=== PATIENT | female | born 1980 | race Caucasian/White ===

== ENCOUNTER → 2017-01-16 11:26 | Outpatient (CLI) | payer MEDICARE ==
[2015-02-10 13:07] VITALS: BMI 29.1
[~2017-01-16 11:26] MED LIST: BAYER CHEWABLE81 MG PO; COREG12.5 MG PO; FERROUS SULFAT325 MG PO; FISH OIL 1,2001 CAP PO; HUMULIN N100 U/ML; HUMULIN R100 U/ML; HUMULIN R100 U/ML SC; LANTUS SOL100 UNIT/1 SC; LANTUS SOL100 UNIT/1 SQ; LIPITOR40 MG PO; LISINOPRIL2.5 MG OR; LOPID600 MG PO; OYSCO 500+D TAB1 TAB PO; PRENATAL AD TAB1 TAB PO; VIBRAMYCIN 100100 MG PO; VITAMIN C1000 MG PO; ZESTRIL10 MG PO; ZESTRIL20 MG PO
[2017-01-16 12:19] LABS: BASOPHILS 0.4 % (0-2); EOSINOPHILS 2.8 % (0-7); HEMATOCRIT 35.2 % (36.0-48.0); HEMOGLOBIN 11.9 g/dL (12-16); IMMATURE GRANULOCYTES 0.6 % (0-5); LYMPHOCYTES 20.7 % (15-50); MCH 30.1 pg (26.0-34.0); MCHC 33.8 g/dL (31.0-37.0); MCV 89.1 fL (80.0-100.0); MEAN PLATELET VOLUME 8.8 fL (7.4-10.4); MONOCYTES 3.8 % (2-11); NEUTROPHILS 71.7 % (40-80); PLATELET COUNT 413 10x3/uL (130-400); RBC 3.95 10x6/uL (4.00-5.40); RDW 12.8 % (11.5-14.5); WBC 13.8 10x3/uL (4.8-10.8)
[2017-01-16 12:41] LABS: HEMOGLOBIN A1C 10.7 % (4.8-6.0)
[2017-01-16 13:12] LABS: ANION GAP 17.1 mmol/L (8-16); CALCIUM 8.4 mg/dL (8.5-10.1); CARBON DIOXIDE 18.1 mmol/L (21.0-32.0); CREATININE - SERUM 2.2 mg/dL (0.6-1.3); POTASSIUM - SERUM 4.2 mmol/L (3.5-5.1)
== END | disposition home or self-care (01) ==
LOC: D.LAB 01-02 11:00 → D.RAD 01-02 11:00 → D.LAB 11:26
PROVIDERS: Family Medicine
DX: E10.8 Type 1 diabetes mellitus with unspecified complications (principal); D63.8 Anemia in other chronic diseases classified elsewhere; R07.9 Chest pain, unspecified

== ENCOUNTER → 2017-04-27 09:49 | Outpatient (CLI) | payer MEDICARE ==
[2015-02-10 13:07] VITALS: BMI 29.1
[2017-04-27 10:37] LABS: ANION GAP 13.8 mmol/L (8-16); CALCIUM 8.3 mg/dL (8.5-10.1); CARBON DIOXIDE 21.2 mmol/L (21.0-32.0); CREATININE - SERUM 2.4 mg/dL (0.6-1.3)
== END | disposition home or self-care (01) ==
LOC: D.LAB 04-23 10:45
PROVIDERS: Family Medicine
DX: E10.8 Type 1 diabetes mellitus with unspecified complications (principal); D73.5 Infarction of spleen

== ENCOUNTER → 2017-07-31 10:13 | Outpatient (CLI) | payer MEDICARE ==
[2015-02-10 13:07] VITALS: BMI 29.1
[2017-07-31 11:00] LABS: ANION GAP 14.8 mmol/L (8-16); CALCIUM 8.1 mg/dL (8.5-10.1); CARBON DIOXIDE 19.9 mmol/L (21.0-32.0); CREATININE - SERUM 3.2 mg/dL (0.6-1.3); POTASSIUM - SERUM 3.7 mmol/L (3.5-5.1)
[2017-07-31 11:38] LABS: HEMOGLOBIN A1C 9.2 % (4.8-6.0)
== END | disposition home or self-care (01) ==
LOC: D.LAB 10:13
PROVIDERS: Family Medicine
DX: E10.622 Type 1 diabetes mellitus with other skin ulcer (principal); D73.5 Infarction of spleen; N18.9 Chronic kidney disease, unspecified

== ENCOUNTER → 2018-10-21 08:45 | Outpatient (CLI) | payer MEDICARE ==
[2015-02-10 13:07] VITALS: BMI 29.1
[~2018-10-21 08:45] MED LIST changes: +CELEXA20 MG PO; +CYCLOBENZAPRINE10 MG PO; +LASIX80 MG PO; +NORVASC5 MG PO; +TUMS PO; +XANAX0.25 MG PO
== END | disposition home or self-care (01) ==
LOC: D.RAD 08:15
PROVIDERS: ATTEND Family Medicine
DX: J18.9 Pneumonia, unspecified organism (principal)

== ENCOUNTER 2018-10-22 15:03 | Inpatient (IN) | payer MEDICARE ==
[~2018-10-22] VITALS: Ht 193 cm; Wt 123.5 kg
[~2018-10-22 15:03] MED LIST changes: -CELEXA20 MG PO; -CYCLOBENZAPRINE10 MG PO; -LASIX80 MG PO; -NORVASC5 MG PO; -TUMS PO; -XANAX0.25 MG PO
[2018-10-22 15:41] LABS: BASOPHILS 0.2 % (0-2); EOSINOPHILS 2.4 % (0-7); HEMATOCRIT 25.3 % (36.0-48.0); HEMOGLOBIN 8.5 g/dL (12-16); IMMATURE GRANULOCYTES 0.4 % (0-5); MCH 30.1 pg (26.0-34.0); MCHC 33.6 g/dL (31.0-37.0); MCV 89.7 fL (80.0-100.0); MEAN PLATELET VOLUME 9.2 fL (7.4-10.4); MONOCYTES 6.1 % (2-11); NEUTROPHILS 82.9 % (40-80); RBC 2.82 10x6/uL (4.00-5.40); WBC 13.2 10x3/uL (4.8-10.8)
[2018-10-22 15:55] LABS: PLATELET COUNT 163 10x3/uL (130-400)
[2018-10-22 16:04] LABS: ALBUMIN 2.4 g/dL (3.4-5.0); BILIRUBIN - TOTAL 0.19 mg/dL (0.2-1.3); CARBON DIOXIDE 15.4 mmol/L (21.0-32.0); CREATININE - SERUM 9.3 mg/dL (0.6-1.3); POTASSIUM - SERUM 4.4 mmol/L (3.5-5.1); PROTEIN - SERUM 6.4 g/dL (6.4-8.2)
[2018-10-22 16:13] LABS: CALCIUM 5.9 mg/dL (8.5-10.1)
[2018-10-22 17:15] VITALS: BP 167/93
--- NOTE | 2018-10-22 17:32 | NUR ---
PT LAYING IN BED RESPIRATIONS ARE EVEN AND UNLABORED NO DISTRESS NOTED. FAMILY MEMBERS AT BEDSIDE. RESPRIATIOSN ARE EVEN AND UNLABORED WILL CONT TO MONITOR.
[2018-10-22 17:41] LABS: APPEARANCE CLEAR (CLEAR); BILIRUBIN NEGATIVE (NEGATIVE); COLOR YELLOW (YELLOW); GLUCOSE 50 mg/dL (NEGATIVE); KETONE NEGATIVE (NEGATIVE); NITRITE NEGATIVE (NEGATIVE); PROTEIN 1+ mg/dL (NEGATIVE); UROBILINOGEN NORMAL (NORMAL)
[2018-10-22 17:42] LABS: BACTERIA MANY /hpf (NONE SEEN); EPITHELIAL CELLS OCC /hpf (0-5); RED CELLS - URINE OCC /hpf (0-5); WHITE CELLS - URINE 0-5 /hpf (0-5)
[2018-10-22 17:44] LABS: CREATINE KINASE 904 UL (21-215); TROPONIN-I 0.053 ng/mL (0.000-0.060)
[2018-10-22 19:00] VITALS: BP 169/98
--- NOTE | 2018-10-22 19:50 | NUR ---
RECIEVED PT TO UNIT VIA WC BY HOSPITAL STAFF AND FAMILY ,BP 175/101 APRESOLINE 10MG GIVEN PO TOLERATED WELL ALL OTHER V/S WNL , BREATH SOUNDS EVEN ,LUNGS CLEAR LOWER LOBES DIMINISHED, 4+ EDEMA ALL OVER , LEFT BKA , RT PARTIAL FOOT AMPUTATION , NO C/O PAIN AT THIS TIME CL IN REACH WILL CONT TO MONIOR FAMILY AT BEDSIDE
--- NOTE | 2018-10-22 21:00 | NUR ---
SPOKE TO DR. SALVADOR REGARDING EXCESS FLUID, HE WENT IN TO SEE PT AND PUT IN ORDERS
[2018-10-22 21:13] VITALS: BP 175/101
[2018-10-23 01:54] VITALS: BP 152/95
--- NOTE | 2018-10-23 02:10 | NUR ---
PAGES BECAUSE PT C/O PAIN , STATED PT COULD NOT HAVE ANYTHING
--- NOTE | 2018-10-23 02:42 | NUR ---
PATIENT HAS SON AND AT BEDSIDE, PT HAS GENERALIZED EDEMA THROUGHOUT ALL EXTREMITIES. I CONCUR WITH THIS ASSESSMENT.
[2018-10-23 03:47] VITALS: BP 178/101; BMI 35.1
[2018-10-23 04:41] LABS: BASOPHILS 0 % (0-2); EOSINOPHILS 2.1 % (0-7); HEMATOCRIT 25.3 % (36.0-48.0); HEMOGLOBIN 8.3 g/dL (12-16); IMMATURE GRANULOCYTES 0.3 % (0-5); LYMPHOCYTES 7.8 % (15-50); MCH 29.4 pg (26.0-34.0); MCHC 32.8 g/dL (31.0-37.0); MCV 89.7 fL (80.0-100.0); MEAN PLATELET VOLUME 9.5 fL (7.4-10.4); MONOCYTES 5.9 % (2-11); NEUTROPHILS 83.9 % (40-80); PLATELET COUNT 170 10x3/uL (130-400); RBC 2.82 10x6/uL (4.00-5.40); RDW 14.1 % (11.5-14.5); WBC 12.2 10x3/uL (4.8-10.8)
--- NOTE | 2018-10-23 05:03 | NUR ---
PTS B/P 187/102, GAVE PT CLONIDINE PO TOLERATED WELL
[2018-10-23 05:13] VITALS: BP 187/102
[2018-10-23 05:14] LABS: % SATURATION 26 % (15-55); IRON 48 ug/dl (35-150); TOTAL IRON BIND CAPACITY 181 ug/dl (260-445); UNSAT IRON BIND CAPACITY 133 ug/dl (150-375)
[2018-10-23 05:24] LABS: ALBUMIN 2.4 g/dL (3.4-5.0); ANION GAP 24.7 mmol/L (8-16); BILIRUBIN - TOTAL 0.23 mg/dL (0.2-1.3); CARBON DIOXIDE 15.6 mmol/L (21.0-32.0); CREATININE - SERUM 9.1 mg/dL (0.6-1.3); MAGNESIUM - SERUM 1.6 mg/dL (1.8-2.4); PHOSPHOROUS 8.8 mg/dL (2.5-4.9); POTASSIUM - SERUM 4.3 mmol/L (3.5-5.1); PROTEIN - SERUM 6.4 g/dL (6.4-8.2)
[2018-10-23 05:32] LABS: CALCIUM 5.6 mg/dL (8.5-10.1)
--- NOTE | 2018-10-23 05:56 | NUR ---
CALLED [facility] WITH CRITICAL LAB CA 5.6, NO ORDERS GIVEN
[2018-10-23 08:03] LABS: COMPLEMENT C4 22.9 mg/dL (17.4-52.2)
[2018-10-23 08:18] VITALS: BP 183/97
[2018-10-23 10:01] LABS: ERYTHROCYTE SEDIMENTATION RATE 35 mm/hr (0-20)
[2018-10-23 11:13] VITALS: BP 182/103
[2018-10-23 15:04] VITALS: Ht 193 cm; Wt 123.5 kg
--- NOTE | 2018-10-23 19:50 | NUR ---
RESUMING PT CARE. PT IS GETTING DIALYSIS. WAITING ON REPORT FROM DIALYSIS ONCE TREATMENT IS COMPLETED.
--- NOTE | 2018-10-23 20:15 | NUR ---
PT IS BACK FROM DIALYSIS. REPORT WAS CALLED FROM DIALYSIS NURSE. 3 LITERS OF FLUID REMOVED. BP 195/106, HR-95, TEMP-97.8 AND R-16. NO ACUTE S/S OF DISTRESS AT THIS TIME. PT HAD A RT HEMOSPLIT PLACED TODAY. PT IS A LT BKA AND RT FOOT IS AMPUTATED. PT HAS A IV IN THE RT AC THAT IS SALINE LOCK. BED IN LOW POSITION WITH CALL LIGHT IN REACH. WILL CONTINUE TO MONITOR PT AND FOLLOW PLAN OF CARE.
--- NOTE | 2018-10-24 01:50 | NUR ---
PT LAYING IN BED RESTING COMFORTABLY WITH EYES CLOSED. FAMILY AT BED SIDE. NO S/S OF DISTRESS NOTED. BED IN LOW POSITION WITH CALL LIGHT IN REACH. WILL CONTINUE TO MONITOR PT AND FOLLOW PLAN OF CARE.
[2018-10-24 02:38] VITALS: BP 156/80
[2018-10-24 08:06] VITALS: BP 183/100
[2018-10-24 09:24] LABS: CREATININE - SERUM 6.9 mg/dL (0.6-1.3)
[2018-10-24 09:27] LABS: ANION GAP 17.2 mmol/L (8-16); CARBON DIOXIDE 22.2 mmol/L (21.0-32.0); POTASSIUM - SERUM 3.4 mmol/L (3.5-5.1)
[2018-10-24 09:31] LABS: CALCIUM 6.1 mg/dL (8.5-10.1)
[2018-10-24 10:22] LABS: ANA REFLEX - DIRECT Negative (Negative); FOLATE (FOLIC ACID) - SERUM 7.9 ng/mL (>3.0)
--- NOTE | 2018-10-24 12:07 | NUR ---
CALLED DIALYSIS TO BRING CALCIUM GLUCONATE TO BE DELIVERED THERE BECAUSE OF A CRITICALLY LOW CALCIUM AND WAS TOLD BY MIRACLE TO WAIT UNTIL SHE IS DONE AND RETURNED TO THE FLOOR.
[2018-10-24 13:18] LABS: HEPATITIS C ANTIBODY <0.1 S/CO RAT (0.0-0.9)
[2018-10-24 14:42] VITALS: BP 194/106
[2018-10-24 17:11] LABS: SPE - A/G RATIO 0.9 (0.7-1.7); SPE - ALBUMIN 2.9 g/dL (2.9-4.4); SPE - ALPHA-1 GLOBULIN 0.4 g/dL (0.0-0.4); SPE - ALPHA-2 GLOBULIN 0.9 g/dL (0.4-1.0); SPE - BETA GLOBULIN 0.7 g/dL (0.7-1.3); SPE - GAMMA GLOBULIN 1.1 g/dL (0.4-1.8); SPE - M-SPIKE Not Observed g/dL (Not Observed)
--- NOTE | 2018-10-24 19:50 | NUR ---
RESUMING PT CARE. PT IS ALERT LAYING IN BED. FAMILY AT BEDSIDE. NO C/O VOICED AT THIS TIME. NO S/S OF DISTRESS NOTED. BED IN LOW POSITION WITH CALL LIGHT. WILL CONTINUE TO MONITOR PT AND FOLLOW PLAN OF CARE.
[2018-10-24 20:00] VITALS: BP 177/101
[2018-10-24 23:31] LABS: APPEARANCE CLEAR (CLEAR); BILIRUBIN NEGATIVE (NEGATIVE); COLOR YELLOW (YELLOW); GLUCOSE 100 mg/dL (NEGATIVE); KETONE NEGATIVE (NEGATIVE); NITRITE NEGATIVE (NEGATIVE); PROTEIN 2+ mg/dL (NEGATIVE); RED CELLS - URINE 0-5 /hpf (0-5); UROBILINOGEN NORMAL (NORMAL); WHITE CELLS - URINE RARE /hpf (0-5)
[2018-10-24 23:38] LABS: CREATININE - URINE 23.2 mg/dL (30-125)
[2018-10-24 23:39] LABS: PRO/CRE RATIO URINE 27.9 mg/g; PROTEIN - URINE 646.3 mg/dL (0.0-11.9)
[2018-10-25 00:30] VITALS: BP 168/98
[2018-10-25 01:21] LABS: UDS - AMPHET NEGATIVE QUAL (NEGATIVE); UDS - BARB NEGATIVE QUAL (NEGATIVE); UDS - BENZO NEGATIVE QUAL (NEGATIVE); UDS - COCAINE NEGATIVE QUAL (NEGATIVE); UDS - OPIATE NEGATIVE QUAL (NEGATIVE); UDS - PCP NEGATIVE QUAL (NEGATIVE); UDS - THC NEGATIVE QUAL (NEGATIVE)
[2018-10-25 04:00] VITALS: BP 161/90
[2018-10-25 05:59] LABS: ANION GAP 18.1 mmol/L (8-16); CARBON DIOXIDE 23.3 mmol/L (21.0-32.0); CREATININE - SERUM 5.3 mg/dL (0.6-1.3); POTASSIUM - SERUM 3.4 mmol/L (3.5-5.1)
[2018-10-25 06:03] LABS: CALCIUM 6.5 mg/dL (8.5-10.1)
--- NOTE | 2018-10-25 07:41 | NUR ---
REPORT RECEIVED. WILL CONTINUE WITH POC. PT CURRENTLY SITTING ON EDGE OF BED. CALL LIGHT W/I REACH. PT IS AAO AND BEDFAST. PT IS TURN Q2HR. RR EVEN AND UNLABORED ON RA. R.FOR PIV IS SALINE LOCKED. FAMILY AT BEDSIDE. PT DENIES ANY NEEDS AT THIS TIME. NO S/S OF DISTRESS NOTED. WILL CTM.
[2018-10-25 09:46] VITALS: BP 156/111
[2018-10-25 10:20] LABS: ANTI-GLOMERULAR BASMENT MEMBRN 3 units (0-20)
[2018-10-25 10:47] LABS: BASOPHILS 0.2 % (0-2); EOSINOPHILS 3.2 % (0-7); HEMATOCRIT 23.2 % (36.0-48.0); IMMATURE GRANULOCYTES 0.2 % (0-5); LYMPHOCYTES 11.7 % (15-50); MCH 29.5 pg (26.0-34.0); MCHC 32.3 g/dL (31.0-37.0); MCV 91.3 fL (80.0-100.0); MONOCYTES 9.1 % (2-11); NEUTROPHILS 75.6 % (40-80); PLATELET COUNT 138 10x3/uL (130-400); RBC 2.54 10x6/uL (4.00-5.40); WBC 9.3 10x3/uL (4.8-10.8)
[2018-10-25 10:49] LABS: HEMOGLOBIN 7.5 g/dL (12-16)
--- NOTE | 2018-10-25 14:08 | MORECARE ---
CASE MANAGEMENT DISCHARGE SUMMARY PATIENT: LUCERO RICH UNIT: [id number] ADM DATE: 10/22/18 AGE: 38 : 82 SEX: F ROOM/BED: D.2103 AUTHOR: TRISTAN PERSAUD PHYSICIAN: REFERRING PHYSICIAN: ИРИНА SALVADOR MD DATE OF SERVICE: 10/25/18 Discharge Plan Patient Name: LUCERO RICH Facility: [facility]:[place] : 1980 Planned Disposition: Home Anticipated Discharge Date: Discharge Date: Expected LOS: Initial Reviewer: [email or web address] Initial Review Date: 10/25/2018 Generated: 10/25/18 3:08 pm DCPIA - Discharge Planning Initial Assessment Updated by [email or web address]: Naseem Soto on 10/25/18 2:07 pm * Is the patient Alert and Oriented? Yes * How many steps to enter\exit or inside your home? * PCP DR. CABRERA * Pharmacy [facility] * Preadmission Environment Home with Family * ADLs Partial Dependent * Partial ADLs (Assistance needed) Medication Management Transfers * Equipment Elevated [place] Seat Shower Chair Wheelchair * Other Equipment GAIT BELT NO MEDICAL EQUIPMENT PROVIDER PREFERENCE * List name and contact numbers for known caregivers / representatives who currently or will assist patient after discharge: JENNIFER RICH, SPOUSE, * Verbal permission to speak to the caregivers and representatives has been obtained from the patient. N/A * Community resources currently utilized None * Please name any agencies selected above. NONE * Additional services required to return to the preadmission environment? No * Can the patient safely return to the preadmission environment? Yes * Has this patient been hospitalized within the prior 30 days at any hospital? No Patient Name: LUCERO RICH Page [phone] at 1408 All edits/amendments must be made on the electronic document DICTATION DATE: 10/25/181406 HEADER OPERATOR: MAURIZIO 10/25/181406 RPT#: [id number] DC DATE: STATUS: ADM IN [facility] [address] [place] [address] END OF REPORT
--- NOTE | 2018-10-25 14:25 | MORECARE ---
CASE MANAGEMENT DISCHARGE SUMMARY PATIENT: LUCERO RICH UNIT: [id number] ADM DATE: 10/22/18 AGE: 38 : 82 SEX: F ROOM/BED: D.8663 AUTHOR: CORI,DOC PHYSICIAN: REFERRING PHYSICIAN: ИРИНА SALVADOR MD DATE OF SERVICE: 10/25/18 Discharge Plan Patient Name: LUECRO RICH Facility: [facility]:[place] : 1980 Planned Disposition: Home Anticipated Discharge Date: Discharge Date: Expected LOS: Initial Reviewer: [email or web address] Initial Review Date: 10/25/2018 Generated: 10/25/18 3:25 pm Comments DCP- Discharge Planning Updated by [email or web address]: Naseem Soto on 10/25/18 1:[address] Patient Name: LUCERO RICH Admission Status: ER Accout number: [id number] Admission Date: 10-22-2018 : 1980 Admission Diagnosis:SHORTNESS OF BREATH Attending: ИРИНА SALVADOR Current LOS: 3 Anticipated DC Date: Planned Disposition: Home Primary Insurance: MEDICARE A & B Discharge Planning Comments: CM RECEIVED ORDER FOR OUTPATIENT DIALYSIS CLINIC ARRANGEMENT. RN AYANA BUENROSTRO HAS ALREADY INFORMED [facility] COORDINATOR JAYSON ALANIS WHO IS WORKING ON CLINIC PLACEMENT. CM MET WITH PT IN ROOM TO DISCUSS DISCHARGE PLANNING AND NEEDS. PT REPORTS LIVING AT HOME DEPENDENTLY WITH SPOUSE WHO ASSISTS WITH TRANSFERS NEEDED AND MEDICATION MANAGEMENT. PT HAS ELEVATED TOILET SEAT, GAIT BELT, SHOWER CHAIR AND WHEELCHAIR WITH NO MEDICAL EQUIPMENT PROVIDER PREFERENCE. PT HAS NO OUTSIDE SERVICES ASSISTING IN THE HOME. CM DISCUSSED AVAILABILITY OF HOME HEALTH, REHAB SERVICES AND MEDICAL EQUIPMENT. PT DENIES DISCHARGE NEEDS, REPORTS HER SPOUSE WILL PICK HER UP FOR DISCHARGE HOME. PT HAS SPOKEN TO JAYSON OF [facility] AND KNOWS AN OUTPATIENT CLINIC IS BEING ARRANGED AND HAVE REQUESTED MWF SCHEDULE IF POSSIBLE. PT'S SPOUSE WORKS AT [facility] AND PT IS NOT ELIGIBLE FOR FREE MEDICAID TRANSPORTATION HER CHILDREN ARE. CM EXPLAINED THAT IF PT HAS "[place]" MEDICAID, SHE MAY NOT BE ELIGIBLE FOR FREE TRANSPORT, BUT MAY BE ELIGIBLE FOR REDUCED COSTS LEONARDO PAY TRANSPORT. PT WILL CHECK WITH MEDICAID REGARDING THIS POSSIBILITY OF TRANSPORTATION ASSISTANCE. CM DISCUSSED APPLYING FOR [employer] TRANSPORT[employer], PROVIDED APPLICATION. PT REPORTS HER SPOUSE MAY HAVE TO TAKE A BREAK FROM WORK TO TRANSPORT PT HOME AFTER DIALYSIS BUT THEY WILL EXPLORE OTHER AVAILABLE OPTIONS. CM WAITING ARRANGEMENT OF OUTPATIENT DIALYSIS CLINIC ARRANGEMENTS. Gift Basket Packer: Naseem Soto DCPIA - Discharge Planning Initial Assessment Updated by [email or web address]: Naseem Soto on 10/25/18 2:07 pm * Is the patient Alert and Oriented? Yes * How many steps to enter\\exit or inside your home? * PCP DR. CABRERA * [facility] * Preadmission Environment Home with Family * ADLs Partial Dependent * Partial ADLs (Assistance needed) Medication Management Transfers * Equipment Elevated [place] Seat Shower Chair Wheelchair * Other Equipment GAIT BELT NO MEDICAL EQUIPMENT PROVIDER PREFERENCE * List name and contact numbers for known caregivers / representatives who currently or will assist patient after discharge: JENNIFER RICH, SPOUSE, * Verbal permission to speak to the caregivers and representatives has been obtained from the patient. N/A * Community resources currently utilized None * Please name any agencies selected above. NONE * Additional services required to return to the preadmission environment? No * Can the patient safely return to the preadmission environment? Yes * Has this patient been hospitalized within the prior 30 days at any hospital? No Last DP export: 10/25/18 1:08 p Patient Name: LUCERO RICH Page [id number] at 1421 All edits/amendments must be made on the electronic document DICTATION DATE: 10/25/181423 HOME ECONOMIST: MAURIZIO 10/25/181423 RPT#: [id number] DC DATE: STATUS: ADM IN [facility] [address] [place] [address] END OF REPORT
--- NOTE | 2018-10-25 14:57 | CN ---
PATIENT NAME:LUCERO RIZVI MEDICAL RECORD: [id number] : 84 LOCATION:[facility] D.2109 ADMIT DATE: 10/22/18 ACCOUNT: [id number] CONSULTING PHYSICIAN: STEVEN LEMOS MD REFERRING PHYSICIAN: ИРИНА SALVADOR MD DATE OF CONSULTATION: 10/25/2018 CARDIOLOGY CONSULT ADMITTING DIAGNOSES: 1. Pulmonary hypertension. 2. Tricuspid regurgitation. HISTORY OF PRESENT ILLNESS: Ms. Rizvi presents with renal failure, fluid overload and is now set for dialysis. She had an echocardiogram revealing pulmonary systolic pressure of 65 with moderate tricuspid regurgitation. Her systolic blood pressures have been in the 180 range. PHYSICAL EXAMINATION: GENERAL APPEARANCE: Well-nourished, well-developed, appears stated age. Level of distress, comfortable. PSYCHIATRIC: Mental status, alert, normal affect. Orientation, oriented to time, place and person. EYES: Lids and conjunctiva, noninjected. No discharge, no pallor. ENT: Lips, teeth, gums, normal dentition. Oropharynx, no cyanosis, no pallor. NECK: Carotid arteries, bilateral normal upstroke, no bruits, no thrills. JUGULAR VEINS: No jugular venous pressure or distention. CERVICAL LYMPH NODES: Nontender, nonenlarged. THYROID: Not enlarged. Nontender. No nodules. LUNGS: Respiratory effort, unlabored. CHEST: Normal curvature. No thoracic deformity. No chest wall tenderness. Percussion, resonant. Auscultation, clear. No wheezes, no rales, no rhonchi. CARDIOVASCULAR: Precordial exam, nondisplaced. No heaves or pericardial thrills. Rate and rhythm, regular. Heart sounds, normal S1, normal S2. No S3, no gallop, no rub. Systolic murmur, not heard. Diastolic murmur, not heard. EXTREMITIES: No cyanosis, no edema. Peripheral pulses, full and equal in all extremities, except as noted. No bruits appreciated. ABDOMEN: Soft, nondistended. Normal aorta. No bruit. Nontender. No masses. Liver, nontender, no hepatomegaly. Spleen, nontender, no splenomegaly. MUSCULOSKELETAL: No joint tenderness. No joint swelling. No erythema. NEUROLOGICAL: Normal gait, normal strength, normal tone. SKIN: Warm and dry. OVERALL IMPRESSION: Tricuspid regurgitation with pulmonary hypertension. This is really an extension of her overall disease process. This will improve with dialysis and blood pressure control. At this time, she is on lisinopril 20 mg daily, carvedilol 12.5 mg daily. No other significant blood pressure medications. Her systolic blood pressure is still in the 190 range, heart rate is still in the 100 range. We will increase the Coreg. Discontinue lisinopril, put her on Procardia in place of lisinopril to lower the pulmonary hypertension as well as the systemic hypertension. TRANSINT:[id number] Voice Confirmation ID: [id number] DOCUMENT ID: [id number] CONSULT REPORT [id number] LUCERO RIZVI, STEVEN RODRIGUEZ at 1457 CC: [id number] DICTATION DATE: 10/25/18410 POWER GENERATION TURBINE ROOM OPERATOR: 10/25/18419 ADM IN [facility] [address] [place] [address]
[2018-10-25] MEDS ORDERED: CYCLOBENZAPRINE10 MG PO (15:36)
[2018-10-25] MEDS ORDERED: CELEXA20 MG PO (15:36)
[2018-10-25] MEDS ORDERED: XANAX0.25 MG PO (15:37)
[2018-10-25 16:08] VITALS: BP 148/85
[2018-10-25 16:13] LABS: ANCA - ANTIMYELOPEROXIDASE <9.0 U/mL (0.0-9.0); ANCA - ANTIPROTEINASE 3 <3.5 U/mL (0.0-3.5); ANCA - ATYPICAL <1:20 titer (Neg:<1:20); ANCA - CYTOPLASMIC <1:20 titer (Neg:<1:20); ANCA - PERINUCLEAR <1:20 titer (Neg:<1:20)
--- NOTE | 2018-10-25 16:58 | NUR ---
AGREE WITH LABOR ARBITRATOR HEARING OFFICE ASSESSMENT
--- NOTE | 2018-10-25 17:54 | NUR ---
Dialysis Coordinator: Met with patient bedside in dialysis. Obtained EVANGELISTA for [facility]. Pt prefers a MWF, unsure if this will be available at [facility]. Referral sent to [facility] for review/acceptance/schedule assignment. Will update Neph & CM/SW as soon as patient accepted/chair-time obtained. FOREIGN RICARDO.
--- NOTE | 2018-10-25 18:16 | NUR ---
PT CURRENTLY LYING SEMI FOWLERS. CALL LIGHT W/I REACH. FAMILY AT BEDSIDE. RR EVEN AND UNLABORED ON RA. R.AC IS SALINE LOCKED. PT DENIES ANY NEEDS AT THIS TIME. WILL PASS REPORT AND CONTINUE WITH POC.
[2018-10-25 20:00] VITALS: BP 146/86
--- NOTE | 2018-10-25 20:21 | NUR ---
RESUMING PT CARE. PT IS ALERT LAYING IN BED WITH NO C/O VOICED AT THIS TIME. FAMILY AT BEDSIDE. NO S/S OF DISTRESS NOTED. BED IN LOW POSITION WITH CALL LIGHT IN REACH. WILL CONTINUE TO MONITOR PT AND FOLLOW PLAN OF CARE.
[2018-10-26 00:30] VITALS: BP 158/91
--- NOTE | 2018-10-26 03:02 | NUR ---
Resting quietly in bed, awake, watching TV, denies any pain or discomfort at this time. Male visitor at bedside. Respirations easy ans regular, no signs of distress.
[2018-10-26 04:30] VITALS: BP 139/78
[2018-10-26 05:30] LABS: BASOPHILS 0.2 % (0-2); EOSINOPHILS 3.8 % (0-7); HEMATOCRIT 23.7 % (36.0-48.0); IMMATURE GRANULOCYTES 0.3 % (0-5); MCH 29.4 pg (26.0-34.0); MCHC 31.6 g/dL (31.0-37.0); MCV 92.9 fL (80.0-100.0); MEAN PLATELET VOLUME 10.3 fL (7.4-10.4); MONOCYTES 9.4 % (2-11); NEUTROPHILS 72.3 % (40-80); PLATELET COUNT 153 10x3/uL (130-400); RBC 2.55 10x6/uL (4.00-5.40); RDW 13.9 % (11.5-14.5); WBC 10.4 10x3/uL (4.8-10.8)
[2018-10-26 05:38] LABS: HEMOGLOBIN 7.5 g/dL (12-16)
[2018-10-26 05:47] LABS: CARBON DIOXIDE 27.9 mmol/L (21.0-32.0); CREATININE - SERUM 4.2 mg/dL (0.6-1.3)
[2018-10-26 05:52] LABS: ANION GAP 11.5 mmol/L (8-16); POTASSIUM - SERUM 5.4 mmol/L (3.5-5.1)
[2018-10-26 05:59] LABS: CALCIUM 6.4 mg/dL (8.5-10.1)
--- NOTE | 2018-10-26 08:11 | NUR ---
ROUNDING DONE WITH PATIENT SITTING ON SIDE OF BED. IN REPORT PATIENT IS BLIND, OLD LEFT AKA, RIGHT FOOT IS SEEN WITH PARTIAL AMUPTATION. ON HEART MONITOR SHOWING SR, HR 81. ROOM AIR. RIGHT CHEST HEMIPSLIT SEEN WITH DRESSING C/D/I. RIGHT AC PIV SEEN SALINE LOCK. ON EP, K+ IS 5.4. FOR DIALYSIS TODAY.
[2018-10-26 09:13] VITALS: BP 128/60
[2018-10-26 12:10] VITALS: BP 120/70
--- NOTE | 2018-10-26 13:45 | NUR ---
RESTING WITH EYES CLOSED, SON AT BEDSIDE. RESP ARE EVEN.
--- NOTE | 2018-10-26 13:53 | NUR ---
NO URINE AT THIS TIME FOR LAB COLLECTION. WILL CONTINUE TO MONITOR.
--- NOTE | 2018-10-26 14:12 | NUR ---
I TALKED TO SUJEY JOSHUA APN FOR CECY HAN FOR PATIENT COUGHING. NEW ORDERS GIVEN.
--- NOTE | 2018-10-26 15:35 | NUR ---
TO DIALYSIS VIA BED.
--- NOTE | 2018-10-26 16:24 | NUR ---
RESTING WITH EYES CLOSED, RESP ARE EVEN. APPEARS TO BE PAIN FREE AT THIS TIME.
--- NOTE | 2018-10-26 18:06 | NUR ---
PATIENT HAS NOT URINATED FOR SAMPLE TO BE OBTAINED. WILL PASS TO NEXT SHIFT.
--- NOTE | 2018-10-26 18:07 | NUR ---
STILL OFF FLOOR IN DIALYSIS,
--- NOTE | 2018-10-26 19:02 | NUR ---
RETURNS FROM DIALYSIS.
--- NOTE | 2018-10-26 19:26 | NUR ---
RECEIVED REPORT, ASSUMED CARE OF PATIENT. ALERT/AWAKE DENIES PAIN OR ANY NEEDS. BACK FROM DIALYSIS. DIALYSIS NURSE REPORTED REMOVING 2.5 L. VISITORS PRESENT IN ROOM. BED IS LOW WITH CALL LIGHT IN REACH.
[2018-10-26 20:00] VITALS: BP 134/75
--- NOTE | 2018-10-26 21:55 | NUR ---
REQUESTED PRN FLEXERIL AND TESSALON PERLE FOR COUGH. 4 UNITS OF HUMALOG ADMIN FOR BS 159. NO OTHER NEEDS VOICED.
[2018-10-26 23:30] VITALS: BP 134/77
[2018-10-27 04:30] VITALS: BP 134/75
--- NOTE | 2018-10-27 05:10 | NUR ---
ADMIN ULTRAM FOR C/O NECK/BACK PAIN LEVEL 8, DESCRIBED SHARP SHOOTING PAINS AND XANAX FOR C/O ANXIETY. NO OTHER NEEDS VOICED.
[2018-10-27 05:33] LABS: BASOPHILS 0.2 % (0-2); IMMATURE GRANULOCYTES 0.3 % (0-5); LYMPHOCYTES 10.5 % (15-50); MCH 29.6 pg (26.0-34.0); MCHC 31.9 g/dL (31.0-37.0); MCV 92.9 fL (80.0-100.0); MEAN PLATELET VOLUME 10.5 fL (7.4-10.4); MONOCYTES 8.3 % (2-11); NEUTROPHILS 77.7 % (40-80); PLATELET COUNT 181 10x3/uL (130-400); RBC 2.53 10x6/uL (4.00-5.40); RDW 13.8 % (11.5-14.5); WBC 12.3 10x3/uL (4.8-10.8)
[2018-10-27 05:46] LABS: HEMOGLOBIN 7.6 g/dL (12-16)
[2018-10-27 05:47] LABS: ALBUMIN 1.9 g/dL (3.4-5.0); CARBON DIOXIDE 31.9 mmol/L (21.0-32.0); CREATININE - SERUM 3.7 mg/dL (0.6-1.3); PHOSPHOROUS 2.8 mg/dL (2.5-4.9)
[2018-10-27 06:03] LABS: ANION GAP 7.1 mmol/L (8-16)
[2018-10-27 06:04] LABS: CALCIUM 6.1 mg/dL (8.5-10.1)
--- NOTE | 2018-10-27 07:11 | NUR ---
ROUNDING DONE WITH PATIENT RESTING IN BED, HOB AT 45 DEGREES. THERE ARE TWO OTHER MEMBERS SLEEPING IN RECLINERS IN ROOM. PATIENT IS ON HEART MONITOR SHOWING SR, HR 85. RIGHT AC PIV SALINE LOCK, ORANGE SWAB CAP IN USE. RIGHT CHEST HEMISPLIT, DRESSING WILL BE CHANGED TODAY (DID NOT GET DONE LAST NIGHT PAST DIALYSIS). ON EP, K+ IS 3.0, WILL COVER WITH ORAL SUPPLEMENTS. WILL MONITOR FOR NEEDS AND CPOC.
--- NOTE | 2018-10-27 08:20 | NUR ---
POTASSIUM 40 MEQ GIVEN FOR EP, RE-DRAW OF LAD ORDERED FOR 1230.
[2018-10-27 09:22] VITALS: BP 184/85
--- NOTE | 2018-10-27 09:25 | NUR ---
PATIENT IS ON BSC AT THIS TIME. SPOUSE IS IN THE ROOM.
--- NOTE | 2018-10-27 12:28 | NUR ---
[facility] PLACED IN BSC FOR SPECIMEN TO BE OBTAINED OF URINE. INSTRUCTED TO NOTIFY STAFF WHEN DONE.
--- NOTE | 2018-10-27 12:33 | NUR ---
POTASSIUM REDRAW WITH RESULTS OF 3.1. WILL COVER AGAIN WITH ORAL SUPPLEMENTS.
[2018-10-27 12:42] LABS: ANION GAP 10.1 mmol/L (8-16); CREATININE - SERUM 3.8 mg/dL (0.6-1.3); POTASSIUM - SERUM 3.1 mmol/L (3.5-5.1)
[2018-10-27 12:47] LABS: CALCIUM 5.9 mg/dL (8.5-10.1)
--- NOTE | 2018-10-27 13:29 | NUR ---
URINE SENT TO LAB ORDERED.
[2018-10-27 13:41] VITALS: BP 108/60
--- NOTE | 2018-10-27 13:48 | NUR ---
DIALYSIS AND DIET EDUCATION FROM [facility] PRINTED OFF FOR PATIENT AND . THEY HAD LOTS OF QUESTIONS R/T DIET.
--- NOTE | 2018-10-27 14:41 | NUR ---
PATIENT HAS HER BLOOD BAND OFF ON THE BED. IT WAS TAKEN OFF BY HER SHE AND HE BOTH STATES IT WAS "CUTTING OFF HER CIRCULATION". I CALLED LAB AND TALKED TO JENNA WHO STATES THAT SINCE I KNOW WHO THE PATIENT IS, IT CAN BE TAPED BACK ON. I TAPED IT BACK ON THE PATIENT.
--- NOTE | 2018-10-27 14:55 | NUR ---
BATH THINGS ARE GIVEN TO PATIENT AND SPOUSE FOR PATIENT TO WASH UP. HE ASKED IF SHE COULD TAKE A SHOWER, I EXPLAINED TO HIM THAT THE BATHROOM IS SMALL FOR THE WHEELCHAIR AND FOR HER TO TRANSFER TO THE SHOWER CHAIR WITH ONE LEG. HE SAID THAT WE DO IT ALL THE TIME. I SAID THAT I WOULD FEEL BETTER WITH HER JUST WASHING UP ON SIDE OF BED.
--- NOTE | 2018-10-27 15:37 | NUR ---
RIGHT CHEST HEMISPLIT DRESSING CHANGED USING STERILE TECHNIQUE. PATIENT IS BRUISED FROM UNDER DRESSING DOWN TO RIGHT BREAST. DATED. TOLERATED WELL. COMPLETE BATH GIVEN PER SPOUSE, COMPLETE LINEN CHANGE PER THIS NURSE.
[2018-10-27 17:32] VITALS: BP 100/64
--- NOTE | 2018-10-27 17:42 | NUR ---
ANOTHER 40 MEQ OF POTASSIUM GIVEN PER EP PROTOCOL.
--- NOTE | 2018-10-27 18:11 | NUR ---
WILL PASS TO NEXT SHIFT THAT WE NEED APPROX ANOTHER A0 CC OF URINE TO FINISH THE PROTEIN ELECTRO TEST THAT WAS ORDERED.
--- NOTE | 2018-10-27 19:37 | NUR ---
ALERT/AWAKE DENIES ANY NEEDS. IV IN R AC INTACT SL. RESP 20 EVEN UNLABORED. TELEMETRY SHOWS 68 SR. FAMILY MEMBERS PRESENT IN ROOM. NO QUESTIONS OR CONCERNS VOICED.
[2018-10-27 20:00] VITALS: BP 119/76
--- NOTE | 2018-10-27 22:20 | NUR ---
ADMIN TRAMADOL 100MG PO AND FLEXERIL PER REQUEST FOR C/O NECK/BACK PAIN; XANAX ADMIN PER REQUEST FOR C/L ANXIETY. NO OTHER NEEDS VOICED.
[2018-10-28] VITALS: BP 129/78
--- NOTE | 2018-10-28 00:45 | NUR ---
RESTING WITH EYES CLOSED. RR 18 EVEN UNLABORED. NO S/S OF DISCOMFORT. FAMILY MEMBERS PRESENT IN ROOM.
[2018-10-28 05:00] VITALS: BP 120/78
[2018-10-28 05:31] LABS: BASOPHILS 0.1 % (0-2); EOSINOPHILS 3.2 % (0-7); HEMATOCRIT 22.9 % (36.0-48.0); IMMATURE GRANULOCYTES 0.3 % (0-5); LYMPHOCYTES 10.9 % (15-50); MCH 29.5 pg (26.0-34.0); MCHC 31.4 g/dL (31.0-37.0); MCV 93.9 fL (80.0-100.0); MEAN PLATELET VOLUME 10.4 fL (7.4-10.4); MONOCYTES 10.2 % (2-11); NEUTROPHILS 75.3 % (40-80); PLATELET COUNT 174 10x3/uL (130-400); RBC 2.44 10x6/uL (4.00-5.40); RDW 14.1 % (11.5-14.5); WBC 11.6 10x3/uL (4.8-10.8)
--- NOTE | 2018-10-28 05:35 | NUR ---
AWAKE. DENIES ANY NEEDS OR DISCOMFORTS.
[2018-10-28 05:37] LABS: HEMOGLOBIN 7.2 g/dL (12-16)
[2018-10-28 05:48] LABS: ANION GAP 9.7 mmol/L (8-16); CREATININE - SERUM 4.3 mg/dL (0.6-1.3); PHOSPHOROUS 2.9 mg/dL (2.5-4.9); POTASSIUM - SERUM 3.7 mmol/L (3.5-5.1)
[2018-10-28 05:55] LABS: CALCIUM 5.9 mg/dL (8.5-10.1)
--- NOTE | 2018-10-28 07:40 | NUR ---
REPORT RECEIVED. WILL CONTINUE WITH POC. PT CURRENTLY LYING SEMI FOWLERS. CALL LIGHT W/I REACH. FAMILY AT BEDSIDE. PT IS AAO AND UP WITH ASSIST. RR EVEN AND UNLABORED ON RA. R.AC PIV IS SALINE LOCKED. PT DENIES ANY NEEDS AT THIS TIME. WILL CTM.
[2018-10-28 08:46] VITALS: BP 123/72
--- NOTE | 2018-10-28 09:31 | NUR ---
AM MEDICATIONS ADMINISTERED. PT LYING SEMI FOWLERS. CALL LIGHT W/I REACH. AAO. FAMILY AT BEDSIDE. REMOVED PIV DRESSING, CLEANING WITH CHLOROHEXIDINE AND PLACED NEW DRESSING. PIV FLUSHES AND PULLS BLOOD. WILL CTM.
--- NOTE | 2018-10-28 10:21 | NUR ---
PT TRANSFERED TO DIALYSIS. WILL CTM.
--- NOTE | 2018-10-28 10:48 | NUR ---
Nutrition follow-up: Pt in dialysis at this time Diet: Renal ADA PO intake 75-100% of meals Labs reviewed Wt: 272# +BM RDN will provide diet education Following.
[2018-10-28 16:11] VITALS: BP 101/65
--- NOTE | 2018-10-28 17:28 | NUR ---
Dialysis Coordinator: Patient has been accepted at [facility] on a TTS @ 7:15 arrival for 7:45 on-time. [facility] [address] [place], [place] [address] Phone Please contact me with any questions. Jenae Taylor, Dialysis Coordinator, [facility] - [phone].
--- NOTE | 2018-10-28 19:26 | NUR ---
ALERT/AWAKE ORIENTED X4. RR 20 EVEN U/L. TELEMETRY SHOWS 76 SR. IV IN R AC INTACT SL. DENIES ANY NEEDS OR DISCOMFORTS. PRESENT IN ROOM. INQUIRED IF SHE WAS BEING DISCHARGED TONIGHT. INFORMED THAT I DID NOT SEE ANY DISCHARGE ORDERS.
[2018-10-28 20:00] VITALS: BP 102/68
--- NOTE | 2018-10-28 21:20 | NUR ---
ADMIN ULTRAM PO AND FLEXERIL PO PER REQUEST FOR C/O NECK/BACK PAIN. REQUESTED ICE PACK FOR HER NECK AND DIET SODA.
[2018-10-29] VITALS: BP 132/81
--- NOTE | 2018-10-29 03:22 | NUR ---
NO CHANGES NOTED. RESTING WITH EYES CLOSED. RR 18 EVEN U/L. NO S/S OF DISCOMFORT. CL IN REACH. PRESENT IN ROOM.
[2018-10-29 04:30] VITALS: BP 122/73
[2018-10-29 05:18] LABS: BASOPHILS 0.1 % (0-2); EOSINOPHILS 2.9 % (0-7); IMMATURE GRANULOCYTES 0.3 % (0-5); LYMPHOCYTES 11.3 % (15-50); MCH 29.5 pg (26.0-34.0); MCV 92.1 fL (80.0-100.0); MEAN PLATELET VOLUME 10.5 fL (7.4-10.4); MONOCYTES 11.8 % (2-11); NEUTROPHILS 73.6 % (40-80); PLATELET COUNT 167 10x3/uL (130-400); WBC 11.7 10x3/uL (4.8-10.8)
[2018-10-29 05:22] LABS: HEMATOCRIT 27.8 % (36.0-48.0); HEMOGLOBIN 8.9 g/dL (12-16); RBC 3.02 10x6/uL (4.00-5.40)
[2018-10-29 05:45] LABS: ANION GAP 8.2 mmol/L (8-16); CARBON DIOXIDE 32.2 mmol/L (21.0-32.0); CREATININE - SERUM 3.8 mg/dL (0.6-1.3); PHOSPHOROUS 2.6 mg/dL (2.5-4.9); POTASSIUM - SERUM 3.4 mmol/L (3.5-5.1)
[2018-10-29 06:08] LABS: CALCIUM 6.2 mg/dL (8.5-10.1)
--- NOTE | 2018-10-29 07:30 | NUR ---
RECEIVED PT IN BED AAOX4 RESP UNLABORED DENIES ANY NEEDS OR DISCOMFORT AT THIS TIME
[2018-10-29 08:00] VITALS: BP 115/76
--- NOTE | 2018-10-29 10:48 | MORECARE ---
CASE MANAGEMENT DISCHARGE SUMMARY PATIENT: LUCERO RICH UNIT: [id number] ADM DATE: 10/22/18 AGE: 38 : 84 SEX: F ROOM/BED: D.9534 AUTHOR: TRISTAN PERSAUD PHYSICIAN: REFERRING PHYSICIAN: ИРИНА SALVADOR MD DATE OF SERVICE: 10/29/18 Discharge Plan Patient Name: LUCERO RICH Facility: [facility]:[place] : 1980 Planned Disposition: Home Anticipated Discharge Date: Discharge Date: Expected LOS: Initial Reviewer: [id number] Initial Review Date: 10/25/2018 Generated: 10/29/18 11:47 am Comments DCP- Discharge Planning Updated by [id number]: Naseem Soto on 10/29/18 9:[address] Patient Name: LUCERO RICH Encounter No: [id number] : 1980 Primary Insurance: MEDICARE A & B Anticipated DC Date: Planned Disposition: Home DCP follow-up note: CM REVIEWED CHART, PATIENT PATHWAYS COORDINATOR JAYSON ALANIS'S NOTE INDICATES: Patient has been accepted at [facility] on a TTS @ 7:15 arrival for 7:45 on-time. [facility] , [address] [place] [address], [place] [address]; [phone] Phone. CM MET WITH PT AND SPOUSE IN ROOM TO DISCUSS DISCHARGE NEEDS AND PLANNING. LUCERO RICH provided verbal consent to discuss current and ongoing needs with/in the presence of: SPOUSE, JENNIFER. CM DISCUSSED AVAILABILITY OF HOME HEALTH, REHAB SERVICES AND MEDICAL EQUIPMENT. PT DENIES DISCHARGE NEEDS. SPOUSE TO TRANSPORT HOME AT DISCHARGE. IMPORTANT MESSAGE FROM MEDICARE PROVIDED AND EXPLAINED. CM TO FOLLOW AND ASSIST NEEDED. Naseem Soto CASE CARMEN DCP- Discharge Planning Updated by [id number]: Naseem Soto on 10/25/18 1:[address] Patient Name: LUCERO RICH Admission Status: ER Accout number: [id number] Admission Date: 10-22-2018 : 1980 Admission Diagnosis:SHORTNESS OF BREATH Attending: ИРИНА SALVADOR Current LOS: 3 Anticipated DC Date: Planned Disposition: Home Primary Insurance: MEDICARE A & B Discharge Planning Comments: CM RECEIVED ORDER FOR OUTPATIENT DIALYSIS CLINIC ARRANGEMENT. RN AYANA BUENROSTRO HAS ALREADY INFORMED PATIENT PATHWAYS COORDINATOR JAYSON ALANIS WHO IS WORKING ON CLINIC PLACEMENT. CM MET WITH PT IN ROOM TO DISCUSS DISCHARGE PLANNING AND NEEDS. PT REPORTS LIVING AT HOME DEPENDENTLY WITH SPOUSE WHO ASSISTS WITH TRANSFERS NEEDED AND MEDICATION MANAGEMENT. PT HAS ELEVATED TOILET SEAT, GAIT BELT, SHOWER CHAIR AND WHEELCHAIR WITH NO MEDICAL EQUIPMENT PROVIDER PREFERENCE. PT HAS NO OUTSIDE SERVICES ASSISTING IN THE HOME. CM DISCUSSED AVAILABILITY OF HOME HEALTH, REHAB SERVICES AND MEDICAL EQUIPMENT. PT DENIES DISCHARGE NEEDS, REPORTS HER SPOUSE WILL PICK HER UP FOR DISCHARGE HOME. PT HAS SPOKEN TO JAYSON OF PATIENT PATHWAYS AND KNOWS AN OUTPATIENT CLINIC IS BEING ARRANGED AND HAVE REQUESTED MWF SCHEDULE IF POSSIBLE. PT'S SPOUSE WORKS AT [facility] AND PT IS NOT ELIGIBLE FOR FREE MEDICAID TRANSPORTATION HER CHILDREN ARE. CM EXPLAINED THAT IF PT HAS "QMB" MEDICAID, SHE MAY NOT BE ELIGIBLE FOR FREE TRANSPORT, BUT MAY BE ELIGIBLE FOR REDUCED COSTS LEONARDO PAY TRANSPORT. PT WILL CHECK WITH MEDICAID REGARDING THIS POSSIBILITY OF TRANSPORTATION ASSISTANCE. CM DISCUSSED APPLYING FOR [employer] TRANS[employer] DISABILITY TRANSPORTATION, PROVIDED APPLICATION. PT REPORTS HER SPOUSE MAY HAVE TO TAKE A BREAK FROM WORK TO TRANSPORT PT HOME AFTER DIALYSIS BUT THEY WILL EXPLORE OTHER AVAILABLE OPTIONS. CM WAITING ARRANGEMENT OF OUTPATIENT DIALYSIS CLINIC ARRANGEMENTS. Software Development Test Engineer: N[facility]em Soto [facility] - Discharge Planning Initial Assessment Updated by [id number]: Naseem Soto on 10/25/18 2:07 pm * Is the patient Alert and Oriented? Yes * How many steps to enter\\exit or inside your home? * PCP DR. CABRERA * Pharmacy [facility] * Preadmission Environment Home with Family * ADLs Partial Dependent * Partial ADLs (Assistance needed) Medication Management Transfers * Equipment Elevated [place] Seat Shower Chair Wheelchair * Other Equipment GAIT BELT NO MEDICAL EQUIPMENT PROVIDER PREFERENCE * List name and contact numbers for known caregivers / representatives who currently or will assist patient after discharge: JENNIFER RICH, SPOUSE, * Verbal permission to speak to the caregivers and representatives has been obtained from the patient. N/A * Community resources currently utilized None * Please name any agencies selected above. NONE * Additional services required to return to the preadmission environment? No * Can the patient safely return to the preadmission environment? Yes * Has this patient been hospitalized within the prior 30 days at any hospital? No Coverage Notice Reviewer: [id number] Sarath Soto Notice Issued Date-Time: 10/29/2018 10:25 Notice Type: IM Discharge Notice Notice Delivered To: Patient Relationship to Patient: Pit Hoist Operator Name: Delivery Method: HAND - Hand Delivered Katia Days: Prior Verbal Notification: Recipient Understood Notice: Yes Recipient Signature: Yes Med Rec Note Co-signed by Attending: Coverage Notice Comment: Last DP export: 10/25/18 1:25 p Patient Name: LUCERO RICH Page [phone] at 1048 All edits/amendments must be made on the electronic document DICTATION DATE: 10/29/18 1047 PIPELINE WELDER: MAURIZIO 10/29/18 1047 RPT#: [id number] DC DATE: STATUS: ADM IN [facility] [address] [place] [address] END OF REPORT
[2018-10-29] MEDS ORDERED: COREG12.5 MG PO (11:16)
[2018-10-29] MEDS ORDERED: NORVASC5 MG PO (11:16)
[2018-10-29] MEDS ORDERED: TUMS PO (11:17)
--- NOTE | 2018-10-29 11:37 | NUR ---
FSBS 148
--- NOTE | 2018-10-29 11:58 | MORECARE ---
CASE MANAGEMENT DISCHARGE SUMMARY PATIENT: LUCERO RICH UNIT: [id number] ADM DATE: 10/22/18 AGE: 38 : 84 SEX: F ROOM/BED: D.1932 AUTHOR: CORI,TRISTAN PHYSICIAN: REFERRING PHYSICIAN: ИРИНА SALVADOR MD DATE OF SERVICE: 10/29/18 Discharge Plan Patient Name: LUCERO RICH Facility: [facility]:[place] : 1980 Planned Disposition: Home Anticipated Discharge Date: 10/29/18 Discharge Date: Expected LOS: 7 Initial Reviewer: [id number] Initial Review Date: 10/25/2018 Generated: 10/29/18 12:57 pm Comments DCP- Discharge Planning Updated by [email or web address]: Naseem Soto on 10/29/18 9:[address] Patient Name: LUCERO RICH Encounter No: [id number] : 1980 Primary Insurance: MEDICARE A & B Anticipated DC Date: Planned Disposition: Home DCP follow-up note: CM REVIEWED CHART, PATIENT PATHWAYS COORDINATOR JAYSON ALANIS'S NOTE INDICATES: Patient has been accepted at [facility] on a TTS @ 7:15 arrival for 7:45 on-time. [facility] , [address] [place] [address], [place] [address]; [phone] Phone. CM MET WITH PT AND SPOUSE IN ROOM TO DISCUSS DISCHARGE NEEDS AND PLANNING. LUCERO RICH provided verbal consent to discuss current and ongoing needs with/in the presence of: SPOUSE, JENNIFER. CM DISCUSSED AVAILABILITY OF HOME HEALTH, REHAB SERVICES AND MEDICAL EQUIPMENT. PT DENIES DISCHARGE NEEDS. SPOUSE TO TRANSPORT HOME AT DISCHARGE. IMPORTANT MESSAGE FROM MEDICARE PROVIDED AND EXPLAINED. CM TO FOLLOW AND ASSIST NEEDED. TODD Castro DCP- Discharge Planning Updated by [email or web address]: Naseem Soto on 10/25/18 1:[address] Patient Name: LUCERO RICH Admission Status: ER Accout number: [id number] Admission Date: 10-22-2018 : 1980 Admission Diagnosis:SHORTNESS OF BREATH Attending: ИРИНА SALVADOR Current LOS: 3 Anticipated DC Date: Planned Disposition: Home Primary Insurance: MEDICARE A & B Discharge Planning Comments: CM RECEIVED ORDER FOR OUTPATIENT DIALYSIS CLINIC ARRANGEMENT. RN AYANA BUENROSTRO HAS ALREADY INFORMED PATIENT PATHWAYS COORDINATOR JAYSON ALANIS WHO IS WORKING ON CLINIC PLACEMENT. CM MET WITH PT IN ROOM TO DISCUSS DISCHARGE PLANNING AND NEEDS. PT REPORTS LIVING AT HOME DEPENDENTLY WITH SPOUSE WHO ASSISTS WITH TRANSFERS NEEDED AND MEDICATION MANAGEMENT. PT HAS ELEVATED TOILET SEAT, GAIT BELT, SHOWER CHAIR AND WHEELCHAIR WITH NO MEDICAL EQUIPMENT PROVIDER PREFERENCE. PT HAS NO OUTSIDE SERVICES ASSISTING IN THE HOME. CM DISCUSSED AVAILABILITY OF HOME HEALTH, REHAB SERVICES AND MEDICAL EQUIPMENT. PT DENIES DISCHARGE NEEDS, REPORTS HER SPOUSE WILL PICK HER UP FOR DISCHARGE HOME. PT HAS SPOKEN TO JAYSON OF PATIENT PATHWAYS AND KNOWS AN OUTPATIENT CLINIC IS BEING ARRANGED AND HAVE REQUESTED MWF SCHEDULE IF POSSIBLE. PT'S SPOUSE WORKS AT [facility] AND PT IS NOT ELIGIBLE FOR FREE MEDICAID TRANSPORTATION HER CHILDREN ARE. CM EXPLAINED THAT IF PT HAS "QMB" MEDICAID, SHE MAY NOT BE ELIGIBLE FOR FREE TRANSPORT, BUT MAY BE ELIGIBLE FOR REDUCED COSTS LEONARDO PAY TRANSPORT. PT WILL CHECK WITH MEDICAID REGARDING THIS POSSIBILITY OF TRANSPORTATION ASSISTANCE. CM DISCUSSED APPLYING FOR [employer] TRANSIT DISABILITY TRANSPORTATION, PROVIDED APPLICATION. PT REPORTS HER SPOUSE MAY HAVE TO TAKE A BREAK FROM WORK TO TRANSPORT PT HOME AFTER DIALYSIS BUT THEY WILL EXPLORE OTHER AVAILABLE OPTIONS. CM WAITING ARRANGEMENT OF OUTPATIENT DIALYSIS CLINIC ARRANGEMENTS. Club Waiter/Waitress: Naseem Soto DCPIA - Discharge Planning Initial Assessment Updated by [email or web address]: Naseem Soto on 10/25/18 2:07 pm * Is the patient Alert and Oriented? Yes * How many steps to enter\\exit or inside your home? * PCP DR. CABRERA * [facility] * Preadmission Environment Home with Family * ADLs Partial Dependent * Partial ADLs (Assistance needed) Medication Management Transfers * Equipment Elevated [place] Seat Shower Chair Wheelchair * Other Equipment GAIT BELT NO MEDICAL EQUIPMENT PROVIDER PREFERENCE * List name and contact numbers for known caregivers / representatives who currently or will assist patient after discharge: JENNIFER RICH, SPOUSE, * Verbal permission to speak to the caregivers and representatives has been obtained from the patient. N/A * Community resources currently utilized None * Please name any agencies selected above. NONE * Additional services required to return to the preadmission environment? No * Can the patient safely return to the preadmission environment? Yes * Has this patient been hospitalized within the prior 30 days at any hospital? No Coverage Notice Reviewer: [id number] - Naseem Soto Notice Issued Date-Time: 10/29/2018 10:25 Notice Type: IM Discharge Notice Notice Delivered To: Patient Relationship to Patient: Scruff Worker Name: Delivery Method: HAND - Hand Delivered Katia Days: Prior Verbal Notification: Recipient Understood Notice: Yes Recipient Signature: Yes Med Rec Note Co-signed by Attending: Coverage Notice Comment: Last DP export: 10/29/18 9:48 a Patient Name: LUCERO RICH Page 73820 at 1158 All edits/amendments must be made on the electronic document DICTATION DATE: 10/29/181156 BARISTA: MAURIZIO 10/29/181156 RPT#: [id number] DC DATE: STATUS: ADM IN [facility] [address] [place] [address] END OF REPORT
--- NOTE | 2018-10-29 12:08 | MORECARE ---
CASE MANAGEMENT DISCHARGE SUMMARY PATIENT: LUCERO RICH UNIT: [id number] ADM DATE: 10/22/18 AGE: 38 : 84 SEX: F ROOM/BED: D.6738 AUTHOR: CORI,TRISTAN PHYSICIAN: REFERRING PHYSICIAN: ИРИНА SALVADOR MD DATE OF SERVICE: 10/29/18 Discharge Plan Patient Name: LUCERO RICH Facility: [facility]:[place] : 1980 Planned Disposition: Home Anticipated Discharge Date: 10/29/18 Discharge Date: Expected LOS: 7 Initial Reviewer: [id number] Initial Review Date: 10/25/2018 Generated: 10/29/18 1:07 pm Comments DCP- Discharge Planning Updated by [email or web address]: Naseem Soto on 10/29/18 9:[address] Patient Name: LUCERO RICH Encounter No: [id number] : 1980 Primary Insurance: MEDICARE A & B Anticipated DC Date: Planned Disposition: Home DCP follow-up note: CM REVIEWED CHART, PATIENT PATHWAYS COORDINATOR JAYSON ALANIS'S NOTE INDICATES: Patient has been accepted at [facility] on a TTS @ 7:15 arrival for 7:45 on-time. [facility] , [address] [place] [address], [place] [address]; [phone] Phone. CM MET WITH PT AND SPOUSE IN ROOM TO DISCUSS DISCHARGE NEEDS AND PLANNING. LUCERO RICH provided verbal consent to discuss current and ongoing needs with/in the presence of: SPOUSE, JENNIFER. CM DISCUSSED AVAILABILITY OF HOME HEALTH, REHAB SERVICES AND MEDICAL EQUIPMENT. PT DENIES DISCHARGE NEEDS. SPOUSE TO TRANSPORT HOME AT DISCHARGE. IMPORTANT MESSAGE FROM MEDICARE PROVIDED AND EXPLAINED. CM TO FOLLOW AND ASSIST NEEDED. TODD Castro DCP- Discharge Planning Updated by [email or web address]: Naseem Soto on 10/25/18 1:[address] Patient Name: LUCERO RICH Admission Status: ER Accout number: [id number] Admission Date: 10-22-2018 : 1980 Admission Diagnosis:SHORTNESS OF BREATH Attending: ИРИНА SALVADOR Current LOS: 3 Anticipated DC Date: Planned Disposition: Home Primary Insurance: MEDICARE A & B Discharge Planning Comments: CM RECEIVED ORDER FOR OUTPATIENT DIALYSIS CLINIC ARRANGEMENT. RN AYANA BUENROSTRO HAS ALREADY INFORMED PATIENT PATHWAYS COORDINATOR JAYSON ALANIS WHO IS WORKING ON CLINIC PLACEMENT. CM MET WITH PT IN ROOM TO DISCUSS DISCHARGE PLANNING AND NEEDS. PT REPORTS LIVING AT HOME DEPENDENTLY WITH SPOUSE WHO ASSISTS WITH TRANSFERS NEEDED AND MEDICATION MANAGEMENT. PT HAS ELEVATED TOILET SEAT, GAIT BELT, SHOWER CHAIR AND WHEELCHAIR WITH NO MEDICAL EQUIPMENT PROVIDER PREFERENCE. PT HAS NO OUTSIDE SERVICES ASSISTING IN THE HOME. CM DISCUSSED AVAILABILITY OF HOME HEALTH, REHAB SERVICES AND MEDICAL EQUIPMENT. PT DENIES DISCHARGE NEEDS, REPORTS HER SPOUSE WILL PICK HER UP FOR DISCHARGE HOME. PT HAS SPOKEN TO JAYSON OF PATIENT PATHWAYS AND KNOWS AN OUTPATIENT CLINIC IS BEING ARRANGED AND HAVE REQUESTED MWF SCHEDULE IF POSSIBLE. PT'S SPOUSE WORKS AT [facility] AND PT IS NOT ELIGIBLE FOR FREE MEDICAID TRANSPORTATION HER CHILDREN ARE. CM EXPLAINED THAT IF PT HAS "QMB" MEDICAID, SHE MAY NOT BE ELIGIBLE FOR FREE TRANSPORT, BUT MAY BE ELIGIBLE FOR REDUCED COSTS LEONARDO PAY TRANSPORT. PT WILL CHECK WITH MEDICAID REGARDING THIS POSSIBILITY OF TRANSPORTATION ASSISTANCE. CM DISCUSSED APPLYING FOR [employer] TRANSIT DISABILITY TRANSPORTATION, PROVIDED APPLICATION. PT REPORTS HER SPOUSE MAY HAVE TO TAKE A BREAK FROM WORK TO TRANSPORT PT HOME AFTER DIALYSIS BUT THEY WILL EXPLORE OTHER AVAILABLE OPTIONS. CM WAITING ARRANGEMENT OF OUTPATIENT DIALYSIS CLINIC ARRANGEMENTS. Freight Caller: Naseem Soto DCPIA - Discharge Planning Initial Assessment Updated by [email or web address]: Naseem Soto on 10/25/18 2:07 pm * Is the patient Alert and Oriented? Yes * How many steps to enter\\exit or inside your home? * PCP DR. CABRERA * [facility] * Preadmission Environment Home with Family * ADLs Partial Dependent * Partial ADLs (Assistance needed) Medication Management Transfers * Equipment Elevated [place] Seat Shower Chair Wheelchair * Other Equipment GAIT BELT NO MEDICAL EQUIPMENT PROVIDER PREFERENCE * List name and contact numbers for known caregivers / representatives who currently or will assist patient after discharge: JENNIFER RICH, SPOUSE, * Verbal permission to speak to the caregivers and representatives has been obtained from the patient. N/A * Community resources currently utilized None * Please name any agencies selected above. NONE * Additional services required to return to the preadmission environment? No * Can the patient safely return to the preadmission environment? Yes * Has this patient been hospitalized within the prior 30 days at any hospital? No Coverage Notice Reviewer: [id number] - Naseem Soto Notice Issued Date-Time: 10/29/2018 10:25 Notice Type: IM Discharge Notice Notice Delivered To: Patient Relationship to Patient: House Fellow Name: Delivery Method: HAND - Hand Delivered Katia Days: Prior Verbal Notification: Recipient Understood Notice: Yes Recipient Signature: Yes Med Rec Note Co-signed by Attending: Coverage Notice Comment: Last DP export: 10/29/18 9:48 a Patient Name: LUCERO RICH Page 72993 at 1208 All edits/amendments must be made on the electronic document DICTATION DATE: 10/29/181206 SUPERINTENDENT GAS DISTRIBUTION: MAURIZIO 10/29/181206 RPT#: [id number] DC DATE: STATUS: ADM IN [facility] [address] [place] [address] END OF REPORT
--- NOTE | 2018-10-29 13:33 | NUR ---
PT TO DIALYSIS VIA BED AT THIS TIME
[2018-10-29] MEDS ORDERED: LASIX80 MG PO (15:38)
--- NOTE | 2018-10-29 17:10 | NUR ---
FSBS 122
--- NOTE | 2018-10-29 17:23 | MORECARE ---
CASE MANAGEMENT DISCHARGE SUMMARY PATIENT: LUCERO RICH UNIT: [id number] ADM DATE: 10/22/18 AGE: 38 : 84 SEX: F ROOM/BED: D.3183 AUTHOR: CORI,TRISTAN PHYSICIAN: REFERRING PHYSICIAN: ИРИНА SALVADOR MD DATE OF SERVICE: 10/29/18 Discharge Plan Patient Name: LUCERO RICH Facility: [facility]:[place] : 1980 Planned Disposition: Home Anticipated Discharge Date: 10/29/18 Discharge Date: Expected LOS: 7 Initial Reviewer: [id number] Initial Review Date: 10/25/2018 Generated: 10/29/18 6:23 pm Comments DCP- Discharge Planning Updated by [email or web address]: Naseem Rice on 10/29/18 4:[address] Patient Name: LUCERO RICH Encounter No: [id number] : 1980 Primary Insurance: MEDICARE A & B Anticipated DC Date: Planned Disposition: Home DCP follow-up note: CM REVIEWED CHART, PATIENT PATHWAYS COORDINATOR JAYSON ALANIS'S NOTE INDICATES: Patient has been accepted at [facility] on a TTS @ 7:15 arrival for 7:45 on-time. [facility] , [address] [place] [address], [place] [address]; [phone] Phone. CM MET WITH PT AND SPOUSE IN ROOM TO DISCUSS DISCHARGE NEEDS AND PLANNING. LUCERO RICH provided verbal consent to discuss current and ongoing needs with/in the presence of: SPOUSE, JENNIFER. CM DISCUSSED AVAILABILITY OF HOME HEALTH, REHAB SERVICES AND MEDICAL EQUIPMENT. PT DENIES DISCHARGE NEEDS. SPOUSE TO TRANSPORT HOME AT DISCHARGE. IMPORTANT MESSAGE FROM MEDICARE PROVIDED AND EXPLAINED. CM TO FOLLOW AND ASSIST NEEDED. Naseem Rice, CASE MANAGEMENT Appended by Naseem Rice on 10/29/2018 17:17 CDT: CM SPOKE TO JAYSON ALANIS, PATIENT PATHWAYS COORDINATOR FOR [facility] WHO PROVIDED WELCOME LETTER FOR PT'S OUTPATIENT DIALYSIS UNIT. CM PROVIDED WELCOME LETTER TO PT'S SPOUSE IN ROOM, PT IN DIALYSIS AT THIS TIME. PT'S SPOUSE REPORTS UNDERSTANDING OF LETTER AND FIRST APPOINTMENT 10-31-18, 0700 AT [facility] WITH NORMAL SCHEDULE OF TTS, 0715 AM. NO FURHTER NEEDS IDENTIFIED. NASEEM RICE, CASE MANAGEMENT DCP- Discharge Planning Updated by [id number]: Naseem Rice on 10/25/18 1:[address] Patient Name: LUCERO RICH Admission Status: ER Accout number: [id number] Admission Date: 10-22-2018 : 1980 Admission Diagnosis:SHORTNESS OF BREATH Attending: ИРИНА SALVADOR Current LOS: 3 Anticipated DC Date: Planned Disposition: Home Primary Insurance: MEDICARE A & B Discharge Planning Comments: CM RECEIVED ORDER FOR OUTPATIENT DIALYSIS CLINIC ARRANGEMENT. RN AYANA BUENROSTRO HAS ALREADY INFORMED PATIENT PATHWAYS COORDINATOR JAYSON ALANIS WHO IS WORKING ON CLINIC PLACEMENT. CM MET WITH PT IN ROOM TO DISCUSS DISCHARGE PLANNING AND NEEDS. PT REPORTS LIVING AT HOME DEPENDENTLY WITH SPOUSE WHO ASSISTS WITH TRANSFERS NEEDED AND MEDICATION MANAGEMENT. PT HAS ELEVATED TOILET SEAT, GAIT BELT, SHOWER CHAIR AND WHEELCHAIR WITH NO MEDICAL EQUIPMENT PROVIDER PREFERENCE. PT HAS NO OUTSIDE SERVICES ASSISTING IN THE HOME. CM DISCUSSED AVAILABILITY OF HOME HEALTH, REHAB SERVICES AND MEDICAL EQUIPMENT. PT DENIES DISCHARGE NEEDS, REPORTS HER SPOUSE WILL PICK HER UP FOR DISCHARGE HOME. PT HAS SPOKEN TO JAYSON OF PATIENT PATHWAYS AND KNOWS AN OUTPATIENT CLINIC IS BEING ARRANGED AND HAVE REQUESTED MWF SCHEDULE IF POSSIBLE. PT'S SPOUSE WORKS AT [facility] AND PT IS NOT ELIGIBLE FOR FREE MEDICAID TRANSPORTATION HER CHILDREN ARE. CM EXPLAINED THAT IF PT HAS "QMB" MEDICAID, SHE MAY NOT BE ELIGIBLE FOR FREE TRANSPORT, BUT MAY BE ELIGIBLE FOR REDUCED COSTS LEONARDO PAY TRANSPORT. PT WILL CHECK WITH MEDICAID REGARDING THIS POSSIBILITY OF TRANSPORTATION ASSISTANCE. CM DISCUSSED APPLYING FOR [employer] TR[facility] DISABILITY TRANSPORTATION, PROVIDED APPLICATION. PT REPORTS HER SPOUSE MAY HAVE TO TAKE A BREAK FROM WORK TO TRANSPORT PT HOME AFTER DIALYSIS BUT THEY WILL EXPLORE OTHER AVAILABLE OPTIONS. CM WAITING ARRANGEMENT OF OUTPATIENT DIALYSIS CLINIC ARRANGEMENTS. Triage Register Nurse: Naseem Rice DCPIA - Discharge Planning Initial Assessment Updated by [email or web address]: Naseem Rice on 10/25/18 2:07 pm * Is the patient Alert and Oriented? Yes * How many steps to enter\\exit or inside your home? * PCP DR. CABRERA * [facility]acy [facility] * Preadmission Environment Home with Family * ADLs Partial Dependent * Partial ADLs (Assistance needed) Medication Management Transfers * Equipment Elevated Tol[place] Seat Shower Chair Wheelchair * Other Equipment GAIT BELT NO MEDICAL EQUIPMENT PROVIDER PREFERENCE * List name and contact numbers for known caregivers / representatives who currently or will assist patient after discharge: JENNIFER RICH, SPOUSE, * Verbal permission to speak to the caregivers and representatives has been obtained from the patient. N/A * Community resources currently utilized None * Please name any agencies selected above. NONE * Additional services required to return to the preadmission environment? No * Can the patient safely return to the preadmission environment? Yes * Has this patient been hospitalized within the prior 30 days at any hospital? No Coverage Notice Reviewer: [id number] Sarath Rice Notice Issued Date-Time: 10/29/2018 10:25 Notice Type: IM Discharge Notice Notice Delivered To: Patient Relationship to Patient: Channel Layer Name: Delivery Method: HAND - Hand Delivered Katia Days: Prior Verbal Notification: Recipient Understood Notice: Yes Recipient Signature: Yes Med Rec Note Co-signed by Attending: Coverage Notice Comment: Last DP export: 10/29/18 11:07 a Patient Name: LUCERO RICH Page 77482 at 1723 All edits/amendments must be made on the electronic document DICTATION DATE: 10/29/181722 HEALTH WORKERS: MAURIZIO 10/29/181722 RPT#: [id number] DC DATE: STATUS: ADM IN [facility] [address] [place] [address] END OF REPORT
[2018-10-29 18:19] VITALS: BP 120/68
--- NOTE | 2018-10-29 19:08 | NUR ---
INTRODUCED SELF TO PATIENT, PATIENT HAS AND CHILD AT BEDSIDE. PATIENT STATED WANTED A SHOWER TONIGHT OR EARLY IN THE MORNING. LET TECH KNOW. PATIENT BED IN LOWEST POSITION, CALL LIGHT IN REACH. NO S/SX OF DISTRESS OR DISCOMFORT AT THIS TIME.
[2018-10-29 20:00] VITALS: BP 105/48; BP 111/69
[2018-10-30] VITALS: BP 128/77
[2018-10-30 04:00] VITALS: BP 125/72
[2018-10-30 05:57] LABS: BASOPHILS 0.1 % (0-2); EOSINOPHILS 2.7 % (0-7); HEMATOCRIT 27.2 % (36.0-48.0); HEMOGLOBIN 8.5 g/dL (12-16); IMMATURE GRANULOCYTES 0.3 % (0-5); LYMPHOCYTES 14.6 % (15-50); MCH 29.3 pg (26.0-34.0); MCHC 31.3 g/dL (31.0-37.0); MCV 93.8 fL (80.0-100.0); MEAN PLATELET VOLUME 9.5 fL (7.4-10.4); MONOCYTES 11.5 % (2-11); NEUTROPHILS 70.8 % (40-80); PLATELET COUNT 147 10x3/uL (130-400); RDW 14.9 % (11.5-14.5); WBC 10.2 10x3/uL (4.8-10.8)
[2018-10-30 06:22] LABS: ANION GAP 7.9 mmol/L (8-16); CARBON DIOXIDE 33.7 mmol/L (21.0-32.0); CREATININE - SERUM 3.5 mg/dL (0.6-1.3); POTASSIUM - SERUM 3.6 mmol/L (3.5-5.1)
[2018-10-30 06:24] LABS: CALCIUM 6.1 mg/dL (8.5-10.1)
--- NOTE | 2018-10-30 07:45 | NUR ---
A/A/OX4. DENIES ANY PAIN AT PRESENT TIME AND VOICES NO REQUESTS. ASSESSMENT COMPLETED WITH NO CHANGES NOTED. BED IN LOW POSTITION. LOCKED, SIDERAILS UP X 2 AND CALL LIGHT IN REACH. FAMILY MEMBER AT BEDSIDE. WILL CONTINUE POC.
--- NOTE | 2018-10-30 07:54 | MORECARE ---
CASE MANAGEMENT DISCHARGE SUMMARY PATIENT: LUCERO RICH UNIT: [id number] ADM DATE: 10/22/18 AGE: 38 : [birth year] SEX: F ROOM/BED: D.1792 AUTHOR: CORI,TRISTAN PHYSICIAN: REFERRING PHYSICIAN: ИРИНА SALVADOR MD DATE OF SERVICE: 10/30/18 Discharge Plan Patient Name: LUCERO RICH Facility: [facility]:[place] : 1980 Planned Disposition: Home Anticipated Discharge Date: 10/30/18 Discharge Date: Expected LOS: 8 Initial Reviewer: [id number] Initial Review Date: 10/25/2018 Generated: 10/30/18 8:53 am Comments DCP- Discharge Planning Updated by [email or web address]: Naseem Rice on 10/29/18 4:[address] Patient Name: LUCERO RICH Encounter No: [id number] : 1980 Primary Insurance: MEDICARE A & B Anticipated DC Date: Planned Disposition: Home DCP follow-up note: CM REVIEWED CHART, PATIENT PATHWAYS COORDINATOR JAYSON ALANIS'S NOTE INDICATES: Patient has been accepted at [facility] on a TTS @ 7:15 arrival for 7:45 on-time. [facility] , [address] [place] [address], [place] [address]; [phone] Phone. CM MET WITH PT AND SPOUSE IN ROOM TO DISCUSS DISCHARGE NEEDS AND PLANNING. LUCERO RICH provided verbal consent to discuss current and ongoing needs with/in the presence of: SPOUSE, JENNIFER. CM DISCUSSED AVAILABILITY OF HOME HEALTH, REHAB SERVICES AND MEDICAL EQUIPMENT. PT DENIES DISCHARGE NEEDS. SPOUSE TO TRANSPORT HOME AT DISCHARGE. IMPORTANT MESSAGE FROM MEDICARE PROVIDED AND EXPLAINED. CM TO FOLLOW AND ASSIST NEEDED. Naseem Rice, CASE MANAGEMENT Appended by Naseem Rice on 10/29/2018 17:17 CDT: CM SPOKE TO JAYSON ALANIS, PATIENT PATHWAYS COORDINATOR FOR [facility] WHO PROVIDED WELCOME LETTER FOR PT'S OUTPATIENT DIALYSIS UNIT. CM PROVIDED WELCOME LETTER TO PT'S SPOUSE IN ROOM, PT IN DIALYSIS AT THIS TIME. PT'S SPOUSE REPORTS UNDERSTANDING OF LETTER AND FIRST APPOINTMENT 10-31-18, 0700 AT [facility] WITH NORMAL SCHEDULE OF TTS, 0715 AM. NO FURHTER NEEDS IDENTIFIED. NASEEM RICE, CASE MANAGEMENT DCP- Discharge Planning Updated by [id number]: Naseem Rice on 10/25/18 1:[address] Patient Name: LUCERO RICH Admission Status: ER Accout number: [id number] Admission Date: 10-22-2018 : 1980 Admission Diagnosis:SHORTNESS OF BREATH Attending: ИРИНА SALVADOR Current LOS: 3 Anticipated DC Date: Planned Disposition: Home Primary Insurance: MEDICARE A & B Discharge Planning Comments: CM RECEIVED ORDER FOR OUTPATIENT DIALYSIS CLINIC ARRANGEMENT. RN AYANA BUENROSTRO HAS ALREADY INFORMED PATIENT PATHWAYS COORDINATOR JAYSON ALANIS WHO IS WORKING ON CLINIC PLACEMENT. CM MET WITH PT IN ROOM TO DISCUSS DISCHARGE PLANNING AND NEEDS. PT REPORTS LIVING AT HOME DEPENDENTLY WITH SPOUSE WHO ASSISTS WITH TRANSFERS NEEDED AND MEDICATION MANAGEMENT. PT HAS ELEVATED TOILET SEAT, GAIT BELT, SHOWER CHAIR AND WHEELCHAIR WITH NO MEDICAL EQUIPMENT PROVIDER PREFERENCE. PT HAS NO OUTSIDE SERVICES ASSISTING IN THE HOME. CM DISCUSSED AVAILABILITY OF HOME HEALTH, REHAB SERVICES AND MEDICAL EQUIPMENT. PT DENIES DISCHARGE NEEDS, REPORTS HER SPOUSE WILL PICK HER UP FOR DISCHARGE HOME. PT HAS SPOKEN TO JAYSON OF PATIENT PATHWAYS AND KNOWS AN OUTPATIENT CLINIC IS BEING ARRANGED AND HAVE REQUESTED MWF SCHEDULE IF POSSIBLE. PT'S SPOUSE WORKS AT [facility] AND PT IS NOT ELIGIBLE FOR FREE MEDICAID TRANSPORTATION HER CHILDREN ARE. CM EXPLAINED THAT IF PT HAS "QMB" MEDICAID, SHE MAY NOT BE ELIGIBLE FOR FREE TRANSPORT, BUT MAY BE ELIGIBLE FOR REDUCED COSTS LEONARDO PAY TRANSPORT. PT WILL CHECK WITH MEDICAID REGARDING THIS POSSIBILITY OF TRANSPORTATION ASSISTANCE. CM DISCUSSED APPLYING FOR INTERCITY TRANSIT DISABILITY TRANSPORTATION, PROVIDED APPLICATION. PT REPORTS HER SPOUSE MAY HAVE TO TAKE A BREAK FROM WORK TO TRANSPORT PT HOME AFTER DIALYSIS BUT THEY WILL EXPLORE OTHER AVAILABLE OPTIONS. CM WAITING ARRANGEMENT OF OUTPATIENT DIALYSIS CLINIC ARRANGEMENTS. Carpet Weaver: Naseem Rice DCPIA - Discharge Planning Initial Assessment Updated by [email or web address]: Naseem Rice on 10/25/18 2:07 pm * Is the patient Alert and Oriented? Yes * How many steps to enter\\exit or inside your home? * PCP DR. CABRERA * Pharmacy [facility] * Preadmission Environment Home with Family * ADLs Partial Dependent * Partial ADLs (Assistance needed) Medication Management Transfers * Equipment Elevated [place] Seat Shower Chair Wheelchair * Other Equipment GAIT BELT NO MEDICAL EQUIPMENT PROVIDER PREFERENCE * List name and contact numbers for known caregivers / representatives who currently or will assist patient after discharge: JENNIFER RICH, SPOUSE, * Verbal permission to speak to the caregivers and representatives has been obtained from the patient. N/A * Community resources currently utilized None * Please name any agencies selected above. NONE * Additional services required to return to the preadmission environment? No * Can the patient safely return to the preadmission environment? Yes * Has this patient been hospitalized within the prior 30 days at any hospital? No Coverage Notice Reviewer: [id number] Sarath Rice Notice Issued Date-Time: 10/29/2018 10:25 Notice Type: IM Discharge Notice Notice Delivered To: Patient Relationship to Patient: Geoscience Laboratory Technician Name: Delivery Method: HAND - Hand Delivered Katia Days: Prior Verbal Notification: Recipient Understood Notice: Yes Recipient Signature: Yes Med Rec Note Co-signed by Attending: Coverage Notice Comment: Last DP export: 10/29/18 4:23 p Patient Name: LUCERO RICH Page [id number] at 0754 All edits/amendments must be made on the electronic document DICTATION DATE: 10/30/18752 FORESTRY SUPERVISOR: MAURIZIO 10/30/18 075 RPT#: [id number] DC DATE: STATUS: ADM IN [facility] [address] [place] [address] END OF REPORT
--- NOTE | 2018-10-30 09:15 | NUR ---
ASSISTED UP TO SHOWER BY HER . TOLERATED WELL AND STATES SHE FEELS MUCH BETTER NOW. PUT BACK IN BED BY HER . ASSESSMENT COMPLETED. BED LOCKED IN LOW POSITION. SIDERAILS UP X 2 AND CALL LIGHT IN REACH.
--- NOTE | 2018-10-30 09:36 | NUR ---
TO DIALYSIS VIA BED.
[2018-10-30 09:54] VITALS: BP 110/62
[2018-10-30 12:17] LABS: UPE RAND - ALBUMIN 43.7 % (()); UPE RAND - ALPHA 1 GLOBULIN 12.6 % (()); UPE RAND - ALPHA 2 GLOBULIN 13.2 % (()); UPE RAND - BETA GLOBULIN 12.7 % (()); UPE RAND - GAMMA GLOBULIN 17.9 % (())
--- NOTE | 2018-10-30 12:45 | NUR ---
I have reviewed this patient and I concur with the Shift Assessment completed by the Licensed Practical Nurse today this shift.
--- NOTE | 2018-10-30 16:09 | NUR ---
DISCHARGE INSTRUCTIONS REVIEWED WITH PTS WHILE SHE WAS IN DIALYSIS. VERBALIZES UNDERSTANDING WITH NO QUESTIONS. SL REMOVED WITH TIP INTACT. LEFT FLOOR VIA W/C WITH ALL PERSONAL BELONGINGS. LEFT FACILITY VIA PRIVATE VEHICLE WITH HER .
--- NOTE | 2018-10-31 08:04 | MORECARE ---
CASE MANAGEMENT DISCHARGE SUMMARY PATIENT: LUCERO RICH UNIT: [id number] ADM DATE: 10/22/18 AGE: 38 : [birth year] SEX: F ROOM/BED: D.9150 AUTHOR: CORI,TRISTAN PHYSICIAN: REFERRING PHYSICIAN: ИРИНА SALVADOR MD DATE OF SERVICE: 10/31/18 Discharge Plan Patient Name: LUCERO RICH Facility: [facility]:[place] : 1980 Planned Disposition: Home Anticipated Discharge Date: 10/30/18 Discharge Date: 10/30/2018 Expected LOS: 8 Initial Reviewer: [email or web address] Initial Review Date: 10/25/2018 Generated: 10/31/18 9:04 am Comments DCP- Discharge Planning Updated by [email or web address]: Naseem Rice on 10/29/18 4:[address] Patient Name: LUCERO RICH Encounter No: [id number] : 1980 Primary Insurance: MEDICARE A & B Anticipated DC Date: Planned Disposition: Home DCP follow-up note: CM REVIEWED CHART, PATIENT PATHWAYS COORDINATOR JAYSON ALANIS'S NOTE INDICATES: Patient has been accepted at [facility] on a TTS @ 7:15 arrival for 7:45 on-time. [facility] , [address] [place] [address]; [phone] Phone. CM MET WITH PT AND SPOUSE IN ROOM TO DISCUSS DISCHARGE NEEDS AND PLANNING. LUCERO RICH provided verbal consent to discuss current and ongoing needs with/in the presence of: SPOUSE, JENNIFER. CM DISCUSSED AVAILABILITY OF HOME HEALTH, REHAB SERVICES AND MEDICAL EQUIPMENT. PT DENIES DISCHARGE NEEDS. SPOUSE TO TRANSPORT HOME AT DISCHARGE. IMPORTANT MESSAGE FROM MEDICARE PROVIDED AND EXPLAINED. CM TO FOLLOW AND ASSIST NEEDED. Naseem Rice, CASE MANAGEMENT Appended by Naseem Rcie on 10/29/2018 17:17 CDT: CM SPOKE TO JAYSON ALANIS, PATIENT PATHWAYS COORDINATOR FOR [facility] WHO PROVIDED WELCOME LETTER FOR PT'S OUTPATIENT DIALYSIS UNIT. CM PROVIDED WELCOME LETTER TO PT'S SPOUSE IN ROOM, PT IN DIALYSIS AT THIS TIME. PT'S SPOUSE REPORTS UNDERSTANDING OF LETTER AND FIRST APPOINTMENT 10-31-18, 0700 AT [facility] WITH NORMAL SCHEDULE OF TTS, 0715 AM. NO FURHTER NEEDS IDENTIFIED. NASEEM RICE, CASE MANAGEMENT DCP- Discharge Planning Updated by [id number]: Naseem Rice on 10/25/18 1:[address] Patient Name: LUCERO RICH Admission Status: ER Accout number: [id number] Admission Date: 10-22-2018 : 1980 Admission Diagnosis:SHORTNESS OF BREATH Attending: ИРИНА SALVADOR Current LOS: 3 Anticipated DC Date: Planned Disposition: Home Primary Insurance: MEDICARE A & B Discharge Planning Comments: CM RECEIVED ORDER FOR OUTPATIENT DIALYSIS CLINIC ARRANGEMENT. RN AYANA BUENROSTRO HAS ALREADY INFORMED PATIENT PATHWAYS COORDINATOR JAYSON ALANIS WHO IS WORKING ON CLINIC PLACEMENT. CM MET WITH PT IN ROOM TO DISCUSS DISCHARGE PLANNING AND NEEDS. PT REPORTS LIVING AT HOME DEPENDENTLY WITH SPOUSE WHO ASSISTS WITH TRANSFERS NEEDED AND MEDICATION MANAGEMENT. PT HAS ELEVATED TOILET SEAT, GAIT BELT, SHOWER CHAIR AND WHEELCHAIR WITH NO MEDICAL EQUIPMENT PROVIDER PREFERENCE. PT HAS NO OUTSIDE SERVICES ASSISTING IN THE HOME. CM DISCUSSED AVAILABILITY OF HOME HEALTH, REHAB SERVICES AND MEDICAL EQUIPMENT. PT DENIES DISCHARGE NEEDS, REPORTS HER SPOUSE WILL PICK HER UP FOR DISCHARGE HOME. PT HAS SPOKEN TO JAYSON OF PATIENT PATHWAYS AND KNOWS AN OUTPATIENT CLINIC IS BEING ARRANGED AND HAVE REQUESTED MWF SCHEDULE IF POSSIBLE. PT'S SPOUSE WORKS AT [employer] AND PT IS NOT ELIGIBLE FOR FREE MEDICAID TRANSPORTATION HER CHILDREN ARE. CM EXPLAINED THAT IF PT HAS "QMB" MEDICAID, SHE MAY NOT BE ELIGIBLE FOR FREE TRANSPORT, BUT MAY BE ELIGIBLE FOR REDUCED COSTS LEONARDO PAY TRANSPORT. PT WILL CHECK WITH MEDICAID REGARDING THIS POSSIBILITY OF TRANSPORTATION ASSISTANCE. CM DISCUSSED APPLYING FOR INTERCITY TRANSIT DISABILITY TRANSPORTATION, PROVIDED APPLICATION. PT REPORTS HER SPOUSE MAY HAVE TO TAKE A BREAK FROM WORK TO TRANSPORT PT HOME AFTER DIALYSIS BUT THEY WILL EXPLORE OTHER AVAILABLE OPTIONS. CM WAITING ARRANGEMENT OF OUTPATIENT DIALYSIS CLINIC ARRANGEMENTS. Physiotherapy Assistant: Naseem Rice DCPIA - Discharge Planning Initial Assessment Updated by [email or web address]: Naseem Rice on 10/25/18 2:07 pm * Is the patient Alert and Oriented? Yes * How many steps to enter\\exit or inside your home? * PCP DR. CABRERA * Pharmacy [facility] * Preadmission Environment Home with Family * ADLs Partial Dependent * Partial ADLs (Assistance needed) Medication Management Transfers * Equipment Elevated [place] Seat Shower Chair Wheelchair * Other Equipment GAIT BELT NO MEDICAL EQUIPMENT PROVIDER PREFERENCE * List name and contact numbers for known caregivers / representatives who currently or will assist patient after discharge: JENNIFER RICH, SPOUSE, * Verbal permission to speak to the caregivers and representatives has been obtained from the patient. N/A * Community resources currently utilized None * Please name any agencies selected above. NONE * Additional services required to return to the preadmission environment? No * Can the patient safely return to the preadmission environment? Yes * Has this patient been hospitalized within the prior 30 days at any hospital? No Coverage Notice Reviewer: [id number] Sarath Rice Notice Issued Date-Time: 10/29/2018 10:25 Notice Type: IM Discharge Notice Notice Delivered To: Patient Relationship to Patient: Federal Java Developer Name: Delivery Method: HAND - Hand Delivered Katia Days: Prior Verbal Notification: Recipient Understood Notice: Yes Recipient Signature: Yes Med Rec Note Co-signed by Attending: Coverage Notice Comment: Last DP export: 10/30/18 6:53 a Patient Name: LUCERO RICH Page [id number] at 0804 All edits/amendments must be made on the electronic document DICTATION DATE: 10/31/18803 EINSTEIN BROS BAGELS ASSISTANT MANAGER: MAURIZIO 10/31/18803 RPT#: [id number] DC DATE:10/30/18 STATUS: DIS IN [facility] [address] [place] [address] END OF REPORT
== END 2018-10-30 15:54 | disposition home or self-care (01) | DRG 673 ==
LOC: D.ER 15:03 → D.M2 18:14
PROVIDERS: Family Medicine; Internal Medicine; Internal Medicine Nephrology; Surgery; ADMIT Internal Medicine Nephrology; ATTEND Internal Medicine Nephrology
PROC: 05HM33Z Insertion of Infusion Device into Right Internal Jugular Vein, Percutaneous Approach (ICD-10-PCS; 2018-10-23)
PROC: B5131ZA Fluoroscopy of Right Jugular Veins using Low Osmolar Contrast, Guidance (ICD-10-PCS; 2018-10-23)
PROC: 5A1D70Z Performance of Urinary Filtration, Intermittent, Less than 6 Hours Per Day (ICD-10-PCS; 2018-10-23)
PROC: 0JH63XZ Insertion of Tunneled Vascular Access Device into Chest Subcutaneous Tissue and Fascia, Percutaneous Approach (ICD-10-PCS; principal; 2018-10-23 11:30)
DX: I12.0 Hypertensive chronic kidney disease with stage 5 chronic kidney disease or end stage renal disease (principal); I50.33 Acute on chronic diastolic (congestive) heart failure; G93.41 Metabolic encephalopathy; N18.6 End stage renal disease; E87.2 Acidosis; E87.1 Hypo-osmolality and hyponatremia; F17.213 Nicotine dependence, cigarettes, with withdrawal; E11.22 Type 2 diabetes mellitus with diabetic chronic kidney disease; D50.9 Iron deficiency anemia, unspecified; E83.51 Hypocalcemia; E11.51 Type 2 diabetes mellitus with diabetic peripheral angiopathy without gangrene; Z89.512 Acquired absence of left leg below knee; Z91.19 Patient's noncompliance with other medical treatment and regimen; I27.20 Pulmonary hypertension, unspecified; I07.1 Rheumatic tricuspid insufficiency; D63.1 Anemia in chronic kidney disease; N25.0 Renal osteodystrophy; E11.21 Type 2 diabetes mellitus with diabetic nephropathy

== ENCOUNTER 2018-12-06 06:09 | Day surgery (SDC) | payer MEDICARE ==
[~2018-12-06 06:09] MED LIST changes: +CELEXA20 MG PO; +CYCLOBENZAPRINE10 MG PO; +LASIX80 MG PO; +NORVASC5 MG PO; +TUMS PO; +XANAX0.25 MG PO
[2018-12-06 06:47] LABS: ANION GAP 14.4 mmol/L (8-16); CALCIUM 8.7 mg/dL (8.5-10.1); CARBON DIOXIDE 26.3 mmol/L (21.0-32.0); CREATININE - SERUM 4.1 mg/dL (0.6-1.3); POTASSIUM - SERUM 3.7 mmol/L (3.5-5.1)
[2018-12-06 06:51] LABS: INR 1.2 (0.85-1.17); PROTIME 14.7 SECONDS (11.6-15.0)
[2018-12-06 07:24] LABS: BASOPHILS 0.5 % (0-2); EOSINOPHILS 6.8 % (0-7); HEMATOCRIT 33.6 % (36.0-48.0); HEMOGLOBIN 10.7 g/dL (12-16); IMMATURE GRANULOCYTES 0.5 % (0-5); MCH 29.3 pg (26.0-34.0); MCHC 31.8 g/dL (31.0-37.0); MCV 92.1 fL (80.0-100.0); MEAN PLATELET VOLUME 9.7 fL (7.4-10.4); MONOCYTES 7.8 % (2-11); NEUTROPHILS 66.4 % (40-80); RBC 3.65 10x6/uL (4.00-5.40); RDW 17.2 % (11.5-14.5); WBC 12.8 10x3/uL (4.8-10.8)
[2018-12-06 07:40] LABS: PLATELET COUNT 273 10x3/uL (130-400)
[2018-12-06 07:45] VITALS: BMI 22.3
[2018-12-06 08:40] LABS: HCG SERUM NEGATIVE (NEGATIVE)
--- NOTE | 2018-12-06 11:05 | NUR ---
REC'D FROM . FAMILY AT BEDSIDE. LUE WITH SLING IN USE. THRILL WAS PALPATED. DROWSY. AROUSES TO VERBAL STIMULI. FL TRAY BROUGHT TO PATIENT.
--- NOTE | 2018-12-06 11:35 | NUR ---
REC'D FROM [facility]. TOLERATED FL TRAY. FAMILY AT BEDSIDE. DRESSING CDI TO LUE.
--- NOTE | 2018-12-06 12:10 | NUR ---
TOLERATED FL DIET. IV DC'D WITH CATHETR INTACT. NO VOID D/T ESRD AND IS DIALYSIS DEPENDENT. 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 WRITTEN AND VERBAL DC INST. GIVEN TO PATIENT. VERBALIZED UNDERSTANDING.
--- NOTE | 2018-12-06 12:20 | NUR ---
DC'D HOME WITH FAMILY/FRIEND VIA PRIVATE VEHICLE. TAKEN TO VEHICLE VIA PERSONAL WHEELCHAIR. STABLE AT TIME OF DC.
--- NOTE | 2018-12-09 10:36 | OP ---
PATIENT NAME: LUCERO RICH MEDICAL RECORD: [id number] :[birth year] LOCATION:[facility] ADMISSION DATE: SURGEON: YAJAIRA CASTRO MD DATE OF OPERATION: 12/06/2018 ADDENDUM A Lexx drain was used as a proximal venous tourniquet and nitroglycerin paste was applied to the intact skin of the arm and forearm. I examined her with Duplex ultrasound with color flow and noted the radial artery to be rather small and exhibited some calcifications. I thought it was probably not suitable for creation of an arteriovenous fistula. There was a good median cubital vein and cephalic vein in the upper arm and the brachial artery was about 5 mm in diameter or larger and was not excessively calcific, I decided to go ahead with that brachiocephalic fistula. I made a transverse incision and exposed and isolated the brachial artery and the median cubital vein. These vessels were approximated [id number] and occluded with doubly looped Silastic tapes. A venotomy was made and the vein flushed with heparinized saline. An arteriotomy correspond to the venotomy was made and the artery was flushed proximally and distally with heparinized saline. This was all of her heparin or anticoagulation use. A xqdw-xz-arts anastomosis was then performed with running 7-0 Prolene and Evicel was applied. After allowing two minutes to cure, the loops were released, excellent flow developed in the fistula immediately and the suture line was hemostatic. The wound was infiltrated with 0.25% Marcaine without epinephrine. Subcutaneous tissues were approximated with interrupted inverted 3-0 Vicryl and skin was closed with running intracuticular 4-0 Monocryl and Dermabond glue. The wound was dressed with Maxorb Ag, Tegaderm, and Cavilon skin prep. Examination with the Doppler demonstrated excellent bidirectional outflow from this fistula. It is possible that she may develop a usable fistula in the forearm. It is also possible that she might have symptoms of steal syndrome. If that is the case, then will need to have this distal vein ligated and if that is the case, it should be done earlier than later. PLAN: The patient will be discharged to home today to continue all of her same home medications. She will return to see me in my office in 7-10 days. I will remove the operative dressing at that time. TRANSINT:[id number] Voice Confirmation ID: [id number] DOCUMENT ID: [id number] YAJAIRA CASTRO MD at 1036 CC: GABY PHILLIPS [id number] DICTATION DATE: 12/06/18 1107 IMPROVEMENT COORDINATOR: 12/06/18 1143 [facility] 12/06/18 [place] [id number] [place] [id number]
[2019-01-03] MEDS ORDERED: LISINOPRIL10 MG PO (09:34)
[2019-01-03] MEDS ORDERED: RENVELA800 MG PO (09:35)
[2019-01-03] MEDS ORDERED: HYDROCODON-ACE1 EAC7 PO (12:35)
== END 2018-12-06 12:20 | disposition home or self-care (01) ==
LOC: D.OPS 06:09
PROVIDERS: Anesthesiology; Surgery; ATTEND Internal Medicine Nephrology
DX: E10.22 Type 1 diabetes mellitus with diabetic chronic kidney disease (principal); N18.6 End stage renal disease; Z99.2 Dependence on renal dialysis; Z72.0 Tobacco use

== ENCOUNTER 2019-01-03 08:04 | Day surgery (SDC) | payer MEDICARE | END 2019-01-03 18:05 | disposition home or self-care (01) | LOC: D.OPS 08:04 | DX: E10.22 Type 1 diabetes mellitus with diabetic chronic kidney disease (principal); I12.0 Hypertensive chronic kidney disease with stage 5 chronic kidney disease or end stage renal disease; N18.6 End stage renal disease; Z99.2 Dependence on renal dialysis; K42.9 Umbilical hernia without obstruction or gangrene; Z01.812 Encounter for preprocedural laboratory examination ==

== ENCOUNTER 2020-01-09 10:35 | Day surgery (SDC) | payer MEDICARE ==
[~2020-01-09] VITALS: Ht 193 cm; Wt 99.3 kg
--- NOTE | ~2020-01-09 | OP ---
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 SURGEON: Yajaira Castro MD ANESTHESIA: General per Dr. Vega. OPERATION PERFORMED: Ligation of left brachiocephalic AV fistula. PREOPERATIVE NOTE: Ms. 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 She is on peritoneal dialysis because of diabetic renal disease and in a year since creation of her brachiocephalic fistula has developed an impending gangrene of the hand. She is brought to the OR today after I saw her urgently in consultation yesterday. She is brought to the OR as an outpatient to ligate her fistula. Under general anesthesia, the patient was prepped and draped in sterile manner. A transverse incision across the antecubital space was made and sharp and blunt dissection used to encircle the fistula just above the arterial anastomosis. The fistula was then doubly ligated with 2-0 silk and the incision infiltrated with 0.25% Marcaine without epinephrine and closed with interrupted inverted 3-0 Vicryl and then running intracuticular 4-0 Stratafix. The incision was sealed and closed with Dermabond glue and dressed with Maxorb Ag, Tegaderm, and Cavilon skin prep. Doppler flow in the radial and ulnar arteries after ligation of the fistula has dramatically improved as well as flow in the palmar arch. I did apply some nitroglycerin paste to the intact skin over the fourth and fifth fingers and I did note that the fingers were pinking up as well as the rest of the hand by the time she was headed to the recovery room. Plan for her to go home today. I have written her a prescription for some additional tramadol 50 mg tablets, she can take 1 or 2 p.o. q.6 hours and she takes Tylenol at home in addition as needed for pain. She is to continue all of her same medications and her usual dialysis regime and follow up with me in my office in 1-2 weeks. I have given her my personal cell phone number to call in the interim if there is any problem. TRANSINT:[id number] Voice Confirmation ID: [id number] DOCUMENT ID: [id number] OPERATIVE REPORT [id number] LUCERO RIZVI JAMES MD CC: SHANI DELGADO RN, EMANUEL PHILLIPS and SHANI DELGADO RN [id number] DICTATION DATE: 01/09/207 RIVER CAPTAIN: 01/10/20 0133 [facility] 01/09/20 [facility] [address] [place] [address]
[~2020-01-09 10:35] MED LIST changes: +HYDROCODON-ACE1 EAC7 PO; +LISINOPRIL10 MG PO; +RENVELA800 MG PO
[2020-01-09 10:56] LABS: BASOPHILS 0.2 % (0-2); EOSINOPHILS 1.9 % (0-7); HEMATOCRIT 32.9 % (36.0-48.0); HEMOGLOBIN 10.6 g/dL (12-16); IMMATURE GRANULOCYTES 0.4 % (0-5); LYMPHOCYTES 8.3 % (15-50); MCH 33.5 pg (26.0-34.0); MCHC 32.2 g/dL (31.0-37.0); MCV 104.1 fL (80.0-100.0); MEAN PLATELET VOLUME 9.2 fL (7.4-10.4); MONOCYTES 6.7 % (2-11); NEUTROPHILS 82.5 % (40-80); RBC 3.16 10x6/uL (4.00-5.40); RDW 15.6 % (11.5-14.5)
[2020-01-09 11:00] LABS: ANION GAP 14.3 mmol/L (8-16); CALCIUM 9.8 mg/dL (8.5-10.1); CARBON DIOXIDE 26.7 mmol/L (21.0-32.0); CREATININE - SERUM 8.5 mg/dL (0.6-1.3)
[2020-01-09 11:02] LABS: PLATELET COUNT 169 10x3/uL (130-400)
[2020-01-09 11:24] LABS: INR 1.08 (0.85-1.17)
[2020-01-09] MEDS ORDERED: ROCALTROL0.5 MCG PO (12:41)
[2020-01-09] MEDS ORDERED: SINGULAIR10 MG PO (12:41)
[2020-01-09 12:42] VITALS: Ht 193 cm; Wt 99.3 kg
== END 2020-01-09 18:40 | disposition home or self-care (01) ==
LOC: D.OPS 10:35
PROVIDERS: Anesthesiology; ATTEND Internal Medicine Nephrology
DX: T82.898A Other specified complication of vascular prosthetic devices, implants and grafts, initial encounter (principal); N18.6 End stage renal disease; Z99.2 Dependence on renal dialysis; E11.9 Type 2 diabetes mellitus without complications

== ENCOUNTER 2020-02-06 06:34 | Day surgery (SDC) | payer MEDICARE ==
[~2020-02-06] VITALS: Ht 193 cm; Wt 97.5 kg
[~2020-02-06 06:34] MED LIST changes: +ROCALTROL0.5 MCG PO; +SINGULAIR10 MG PO
[2020-02-06 06:59] LABS: BASOPHILS 0.1 % (0-2); EOSINOPHILS 3.2 % (0-7); HEMATOCRIT 27.2 % (36.0-48.0); HEMOGLOBIN 8.8 g/dL (12-16); IMMATURE GRANULOCYTES 0.4 % (0-5); LYMPHOCYTES 7.6 % (15-50); MCH 32.5 pg (26.0-34.0); MCHC 32.4 g/dL (31.0-37.0); MCV 100.4 fL (80.0-100.0); MEAN PLATELET VOLUME 8.4 fL (7.4-10.4); NEUTROPHILS 83.7 % (40-80); PLATELET COUNT 152 10x3/uL (130-400); RBC 2.71 10x6/uL (4.00-5.40); WBC 13.5 10x3/uL (4.8-10.8)
[2020-02-06 07:21] LABS: ANION GAP 16.1 mmol/L (8-16); CALCIUM 7.9 mg/dL (8.5-10.1); CARBON DIOXIDE 25.2 mmol/L (21.0-32.0); CREATININE - SERUM 8.6 mg/dL (0.6-1.3); POTASSIUM - SERUM 4.3 mmol/L (3.5-5.1)
[2020-02-06 07:22] LABS: INR 1.09 (0.85-1.17)
[2020-02-06 08:23] VITALS: Ht 193 cm; Wt 97.5 kg
[2020-02-06] MEDS ORDERED: ULTRAM50 MG PO (10:48)
[2020-02-06] MEDS ORDERED: PLAVIX75 MG PO (10:50)
--- NOTE | 2020-02-06 17:53 | NUR ---
1155 MEDICATED FOR PAIN IN FINGERS. IV REMOVED FROM UPPER RIGHT ARM. ANGIOGRAM SCHEDULED FOR Sunday AT 10AM, INSTRUCTIONS GIVEN AND SPOKE WITH DR DEWITT WHEN TO STOP PLAVIX ORDERS GIVEN 3 DAYS PRIOR TO PROCEDURE. NPO AFTER MN AND MUST HAVE A EVENT PLANNING INTERN AND ARRIVE 2.5 HRS PRIOR TO PROCEDURE. ORDER FAXED 3XS TO SCHEDULING.
--- NOTE | 2020-02-10 16:13 | OP ---
PATIENT NAME: LUCERO RIZVI MEDICAL RECORD: [id number] :[birth year] LOCATION:[facility] ADMISSION DATE: SURGEON: YAJAIRA CASTRO MD DATE OF OPERATION: 02/06/2020 REFERRED BY: Emanuel Phillips MD PREOPERATIVE DIAGNOSES: End-stage renal disease and dependence on hemodialysis, peripheral arterial disease with gangrene, left fifth finger and also ischemia with developing gangrene in the right third finger. POSTOPERATIVE DIAGNOSES: End-stage renal disease and dependence on hemodialysis, peripheral arterial disease with gangrene, left fifth finger and also ischemia with developing gangrene in the right third finger. OPERATION PERFORMED: Repeated open ligation of persistent left brachiocephalic arterial venous fistula. SURGEON: Yajaira Castro MD ANESTHESIA: General per STRUCTURAL ARCHITECT. PREOPERATIVE NOTE: Mr. Rizvi is a 39-year-old white female, diabetic who has end-stage renal disease among other severe consequences or complications of her diabetes. She had a left distal brachial artery to cephalic AV fistula, which was recently ligated due to her developing gangrene in the small finger. The fistula has, however, persisted and on ultrasound, there are now 2 or 3 venous branches flowing downward into the forearm while the proximal runoff at least in the cephalic vein is eliminated. Because of her persistent finding, she is returned to the operating room to ligate the remaining outflow vessels. Under general anesthesia, the patient was prepped and draped in sterile manner. I examined her with ultrasound and then reopened the transverse incision and I exposed the stump of the vein left on the brachial artery and identified 3 other vein branches, which were providing venous outflow into the forearm. These were all ligated with 2-0 silk. This resulted in succession of the diastolic flow and bruit and improvement in flow as the radial artery with continuous handheld Doppler. The wound was irrigated with Ancef and gentamicin solution, infiltrated with 0.25% Marcaine without epinephrine and closed with interrupted inverted 3-0 Vicryl and intracuticular 4-0 Stratafix, Dermabond glue, Maxorb Ag, Tegaderm, and Cavilon skin prep. She was awakened and taken to the recovery room. Blood loss during the operation was trivial and unreplaced. Sponges, instruments, and needles were accounted for. No drain was used and no surgical specimen was submitted for histopathology. The patient has developed over the past week, severe ischemic changes with impending gangrene of the right third finger. She does not have a dialysis access in that arm. I am starting her today on nitroglycerin ointment applications to the base of the right third and left fifth fingers twice daily and starting her on Plavix 75 mg once a day. I am scheduling her for a right brachial artery arteriogram with possible intervention as an outpatient interventional radiology next week. TRANSINT:[id number] Voice Confirmation ID: [id number] DOCUMENT ID: [id number] OPERATIVE REPORT [id number] LUCERO RIZVI JAMES MD at 1613 CC: EMANUEL PHILLIPS [id number] DICTATION DATE: 02/06/20 1441 PIPE LINE GAUGER: 02/06/20 2344 [facility] 02/06/20 [place] [address] [place] [address]
== END 2020-02-06 12:40 | disposition home or self-care (01) ==
LOC: D.OPS 06:34
PROVIDERS: ATTEND Internal Medicine Nephrology
DX: E11.22 Type 2 diabetes mellitus with diabetic chronic kidney disease (principal); N18.6 End stage renal disease; Z99.2 Dependence on renal dialysis; I99.8 Other disorder of circulatory system; E11.52 Type 2 diabetes mellitus with diabetic peripheral angiopathy with gangrene

== ENCOUNTER 2020-02-13 08:27 | Outpatient (CLI) | payer MEDICARE ==
[~2020-02-13] VITALS: Ht 193 cm; Wt 97.7 kg
--- NOTE | ~2020-02-13 | HEMODYNAMI ---
PATIENT:LUCERO RICH MEDICAL RECORD: [id number] : 84 LOCATION:[facility] ADMISSION DATE: 02/13/20 Generatedon:02/13/202011:30 Patient name: LUCERO RICH Patient #: [id number] SSN: : 1980 Date of study: 02/13/2020 Page: Of Hemodynamic Procedure Report Patient Data Patient Demographics Procedure consent was obtained First Name: LUCERO Gender: Female Last Name: LAYLA : 1980 [facility] Initial: S C Age: 39 year(s) Patient #: [id number] Race: Unknown Additional ID: [id number] Contact details Address: [address] [place] [address] State: [facility] Zip code: [address] Past Medical History Allergies Allergen Reaction Date Comments Reported Other allergy 02/13/2020 cephalexin, pcn Admission Admission Data Admission Date: 02/13/2020 Admission Time: 8:27 Procedure Procedure Types Cath Procedure Peripheral Cath Diagnostic Procedure Abd/Extremity Extremities Right Upper Ext. Arteriogram Procedure Description Procedure Date Procedure Date: 02/13/2020 Procedure Start Time: 11:05 Procedure End Time: 11:29 Procedure Staff Name Function Emanuel Russo MD Performing Physician NIKOLAS TRAN RT Monitor Venkatesh Garcia RT Scrub Chrissy Macias RN Nurse Procedure Data Cath Procedure Fluoroscopy Diagnostic fluoroscopy Total fluoroscopy Time: 2.4 time: 2.4 min min Diagnostic fluoroscopy Total fluoroscopy dose: 64 dose: 64 mGy mGy Contrast Material Contrast Material Type Amount (ml) Isovue 300 65 Entry Location Entry Primary Successful Side Size Upsize Upsize Entry Closure Succ essful Closure Location (Fr) 1 (Fr) 2 (Fr) Remarks Device Remarks Femoral Right 5 Fr Angio-VIP artery 6Fr Diagnostic catheters Device Type Used For End Catheter Placement Merit ULTRA BOLUS FLUSH 5Fr 90CM catheter ([id number]) Procedure Medications Medication Administration Route Dosage Heparin Flush Bag added to field 2 bags (1000units/500ml NS) Lidocaine 1% added to field 20 Versed I.V. 1 mg Fentanyl I.V. 50 mcg Hemodynamics Rest Heart Rate: 0 (bpm) Snapshots Pre Cath Intra NCS Post Cath Vital Signs Time Heart Resp SPO2 etCO2 NIBP (mmHg) Rhythm Pain Sedation Rate (ipm) (%) (mmHg) Status Level (bpm) 10:44:02 73 21 30.7 153/55(88) NSR 0 (11) 10(A) , No pain 10:48:18 73 18 33.7 147/58(89) NSR 0 (11) 10(A) , No pain 10:52:38 74 19 98 36.7 135/67(114) NSR 0 (11) 10(A) , No pain 10:56:52 75 12 98 36 148/65(97) NSR 0 (11) 10(A) , No pain 11:01:12 73 20 97 33.8 124/55(60) NSR 0 (11) 10(A) , No pain 11:06:11 74 8 98 32.3 Measuring NSR 0 (11) 10(A) , No pain 11:06:20 73 9 98 32.3 146/42(98) NSR 0 (11) 10(A) , No pain 11:10:44 85 99 41.3 148/51(92) NSR 0 (11) 10(A) , No pain 11:15:12 73 18 94 34.5 140/45(83) NSR 0 (11) 10(A) , No pain 11:19:32 74 18 99 38.3 129/53(75) NSR 0 (11) 10(A) , No pain 11:23:50 75 10 96 33 144/53(122) NSR 0 (11) 10(A) , No pain 11:28:00 74 16 97 31.5 139/61(73) NSR 0 (11) 10(A) , No pain Medications Time Medication Route Dose Verified Delivered Reason Notes Effe ctiveness by by 11:09:34 Heparin Flush added 2 Emanuel Castellanos used for Bag to bags Russo Russo procedure (1000units/500ml field MD RODRIGUEZ NS) 11:09:45 Lidocaine 1% added 20ml Emanuel Castellanos for local to vial Russo Russo anesthetic field MD RODRIGUEZ 11:09:57 Versed I.V. 1 mg Emanuel Lowe for Karan Macias RN sedation 11:10:08 Fentanyl I.V. 50 Emanuel Lowe for [facility] Karan Macias RN sedation Procedure Log Time Note 10:12:01 Use device set IR Diagnostic 10:12:02 ACIST Syringe (50062) opened to sterile field. 10:12:02 ACIST Hand Control (72748) opened to sterile field. 10:12:02 ACIST Manifold (83084) opened to sterile field. 10:12:03 Bag Decanter (2002S) opened to sterile field. 10:12:03 Sterile Angiographic Pack opened to sterile field. 10:12:04 Tegaderm 4 x 4 (1626W) opened to sterile field. 10:12:56 TUBING High Pressure Extension (IABP) opened to sterile field. 10:12:56 SHEATH 5FR Bauxite (GGE620) opened to sterile field. 10:12:57 ROADRUNNER .035 145 glide wire (C50169) opened to sterile field. 10:12:57 PERCUTANEOUS ENTRY 19GA needle opened to sterile field. 10:12:57 DOC .035 wire (D52180) opened to sterile field. 10:32:46 A [employer] ULTRA BOLUS FLUSH 5Fr 90CM catheter ([id number]) was opened t o sterile field. 10:33:11 - 10:33:14 Venkatesh Garcia RT (R) (CV) sent for patient. Start room use. 10:33:22 Time tracking: Regular hours (M-F 7:00 - 5:00) 10:33:26 Plan of Care:Hemodynamics will remain stable., Cardiac rhythm will remain stable., Comfort level will be maintained., Respiratory function will remain adequate., Patient/ family verbilizes understanding of procedure., Procedure tolerated without complication., Recovers from procedure without complications.. 10:33:32 Patient received from Outpatients to IR Alert and oriented. Tansferred to table in Supine position. 10:33:33 Signed procedure consent form obtained from patient. 10:33:34 Warm blankets applied, and marquis hugger turned on for patient comfort. 10:33:35 Correct patient and procedure confirmed by team. 10:33:35 ECG and BP/O2 sat monitors applied to patient. 10:33:41 H&P Date Dictated: 02/13/2020 H&P Addendum completed by physician on day of procedure. (MUST COMPLETE FOR ALL OUTPATIENTS). 10:33:43 Pre-procedure instructions explained to patient. 10:33:43 Pre-op teaching completed and patient verbalized understanding. 10:33:45 Family in patients room. 10:33:48 Patient NPO since Midnight. 10:34:38 Patient allergic to Other allergycephalexin, pcn 10:34:40 Is the patient allergic to Iodine/contrast media? No. 10:34:43 Is patient on blood thinner?No 10:34:44 Patient diabetic? Yes. 10:34:45 If diabetic: On Metformin? No 10:34:49 Patient not . Patient has had tubal. 10:34:52 - 10:34:53 ----Pre-sedation anethsthesia assessment.---- 10:34:56 Previous problem with sedation/anesthesia? No ? 10:34:58 Snore? Yes 10:34:59 Sleep apnea? No 10:35:01 Deviated septum? No 10:35:04 Opens mouth fully? Yes 10:35:05 Sticks out tongue? Yes 10:35:08 Airway obstruction? No ? 10:35:11 Dentures? No ? 10:35:12 - 10:36:54 IV patent on arrival in subclavian with 0.9% NaCl at KVO. 10:37:06 Right groin area was prepped with chlora-prep and draped in sterile fashion 10:37:08 Alarms reviewed by Ronald Palmer 10:37: Sharps counted by scrub and verified by Ravi 10:37:10 - 10:42:51 Vital chart was started 10:47:18 Baseline sample Acquired. 10:53:01 - 11:03:30 Physician arrived 11:03:30 --------ALL STOP TIME OUT------ 11:03:31 Final Timeout: patient, procedure, and site verified with staff and physician. All members of the team are in agreement. 11:03:35 Right groin site verified by team. 11:04:43 Fire Safety Assessment: A--An alcohol-based skin anteseptic being used preoperatively., C--Open oxygen or nitrous oxide is being used. 11:04:47 5) <15 or on dialysis Very severe, or end stage kidney failure. 11:05:02 Maximum allowable contrast dose (3.7 X eGFR X 0.75)13.8 ml. 11:05:08 Sedation plan: IV Moderate Sedation Medication:Versed, Fentanyl 11:05:13 Procedure started. 11:05:13 Full Disclosure recording started 11:05:41 Local anesthetic to right femoral artery with Lidocaine 1% by Emanuel Russo MD.INITIAL ACCESS ONLY 11:06:37 A 5 Fr sheath was inserted into the Right Femoral artery 11:09:34 Heparin Flush Bag (1000units/500ml NS) 2 bags added to field was administered by Emanuel Russo MD; used for procedure; Verbal order read back and verified. 11:09:45 Lidocaine 1% 20ml vial added to field was administered by Emanuel Russo MD; for local anesthetic; Verbal order read back and verified. 11:09:57 Versed 1 mg I.V. was administered by Chrissy Macias RN; for sedation; Verbal order read back and verified. 11:10:08 Fentanyl 50 mcg I.V. was administered by Chrissy Macias RN; for sedation ; Verbal order read back and verified. 11:11:35 GLIDE CATHETER 5FR Assistant Activities Director H1 100cm (CG513) opened to sterile field. 11:22:41 ANGIOSEAL-VIP PLUS 6 FR opened to sterile field. 11:22:47 Sheath removed intact; hemostasis achieved with Angio-VIP 6Fr to the Right Femoral artery. 11:25:30 Procedure ended.(Physican Out) 11:25:51 Fluoroscopy time 02.40 minutes. 11:25:55 Fluoroscopy dose: 64 mGy 11:25:55 Flurop Dose total: 64 11:25:59 Contrast amount:Isovue 300 65ml. 11:26:02 Maximum allowable dose exceeded? Yes. 11:26:03 Sharps counted by scrub and verified by R.N. 11:26:08 Post-op/insertion site Right Femoral artery dressed using a 4 x 4 and Tegaderm. 11:26:13 Post procedure instruction explained to patient.Patient verbalizes understanding. 11:26:33 Procedure and supply charges have been captured, reviewed, submitted an d are correct. 11:29:35 Vital chart was stopped 11::38 Report given to Outpatients. 11:29:45 Patient transfered to Outpatients with Stretcher. 11:29:47 Procedure ended. 11:29:47 Full Disclosure recording stopped Device Usage Item Name Manufacture Quantity Catalog Number Hospital Part Current [facility] Lot# / Charge Number Stock Stock Serial# Code ACIST Syringe Acist 1 24095 899113 808050 614748 20 (71743) Medical Systems Inc ACIST Hand Acist 1 72462 816154 322200 490921 5 Control Medical (93684) Systems Inc ACIST Manifold Acist 1 24023 271030 772142 189716 5 (25175) [employer] Bag Decanter Microtek 1 218931 99111 272270 5 () Medical Inc. Sterile Cardinal 1 [id number] 514395 276494 5 Angiographic Health Pack Tegaderm 4 x 4 3M 1 1626W 611829 867847 682042 5 (1626W) TUBING High Merit 1 [id number] 700412 942978 251069 5 Pressure Medical Extension (IABP) SHEATH 5FR Terumo 1 OWL557 406314 253871 404378 5 Bauxite (SSF609) ROADRUNNER [employer] 1 B19621 587961 277818 070747 5 .035 145 glide wire (S99457) PERCUTANEOUS [facility] 1 U03326 458057 604252 5 [id number] ENTRY 19GA needle DOC .035 wire [facility] 1 U98315 906825 446051 5 (V46383) Merit ULTRA Merit 1 [id number] 977028 746713 5 [id number] BOLUS FLUSH Medical 5Fr 90CM catheter ([id number]) GLIDE CATHETER [place] 1 CG513 298584 313542 5 5FR [facility] [place] H1 100cm (CG513) ANGIOSEAL-VIP [facility] 1 329984 957341 066906 349356 5 PLUS 6 FR Signature Audit Reeder Stage Time Signature Unsigned Intra-Procedure 02/13/2020 NIKOLAS TRAN RT 11:30:13 AM (R) [facility] [address] [place] [address]
[~2020-02-13 08:27] MED LIST changes: +PLAVIX75 MG PO; +ULTRAM50 MG PO
[2020-02-13 08:53] LABS: ANION GAP 11.3 mmol/L (8-16); APTT 31.8 SECONDS (22.8-39.4); CARBON DIOXIDE 28.9 mmol/L (21.0-32.0); CREATININE - SERUM 8.8 mg/dL (0.6-1.3); INR 1.13 (0.85-1.17); POTASSIUM - SERUM 4.2 mmol/L (3.5-5.1); PROTIME 14.5 SECONDS (11.6-15.0)
[2020-02-13 08:54] LABS: BASOPHILS 0.2 % (0-2); HEMATOCRIT 25.4 % (36.0-48.0); HEMOGLOBIN 8.1 g/dL (12-16); IMMATURE GRANULOCYTES 1.9 % (0-5); LYMPHOCYTES 11.4 % (15-50); MCH 33.5 pg (26.0-34.0); MCHC 31.9 g/dL (31.0-37.0); MEAN PLATELET VOLUME 9.2 fL (7.4-10.4); NEUTROPHILS 77.5 % (40-80); PLATELET COUNT 225 10x3/uL (130-400); RBC 2.42 10x6/uL (4.00-5.40); RDW 15.3 % (11.5-14.5); WBC 19.3 10x3/uL (4.8-10.8)
[2020-02-13] MEDS ORDERED: ADOXA100 MG (09:33)
[2020-02-13 09:53] VITALS: Ht 193 cm; Wt 97.7 kg
--- NOTE | 2020-02-13 11:48 | NUR ---
1147-REC'D FROM [facility]. A&OX4, VSS,DRESSING TO RIGHT GROIN CDI, NO HEMATOMA. ABLE TO PALPATE RIGHT PEDAL PULSE,STRONG AND REGULAT. NO DISTRESS.
--- NOTE | 2020-02-13 13:55 | NUR ---
DC INSTRUCTIONS GIVEN TO PT/FAMILY. STATE UNDERSTANDING. DC'D IV CATH FULLY INTACT. PT HAS WC FROM HOME.
--- NOTE | 2020-02-13 14:00 | NUR ---
PT LEFT UNIT VIA WC AT 1400
== END 2020-02-13 14:00 | disposition home or self-care (01) ==
LOC: D.SP 08:27 → D.RAD 10:00 → D.SP 14:00
PROVIDERS: Specialist; ATTEND Surgery
DX: N18.6 End stage renal disease (principal); Z99.2 Dependence on renal dialysis